=== PATIENT | female | born 1970 | race Caucasian/White ===

== ENCOUNTER → 2018-07-10 | Outpatient (CLI) | payer OTHER ==
--- NOTE | 2018-07-10 08:52 | US ---
EXAMINATION TYPE: US thyroid st tissue head/neck DATE OF EXAM: 07/10/2018 COMPARISON: NONE CLINICAL HISTORY: E04.9 Nontoxic Goiter. GLAND SIZE: Right Lobe: 8.6 x 3.9 x 4.6 cm Overall Parenchyma: heterogenous Left Lobe: 9.2 x 3.5 x 3.2 cm Overall Parenchyma: heterogeneous Isthmus Thickness: 2.8 cm NODULES RIGHT: # of nodules measured on right: 0 LEFT: # of nodules measured on left: 0 ISTHMUS: # of nodules measured in the isthmus: 0 Bilateral neck scanned, no evidence of lymphadenopathy. Gland is grossly enlarged and diffusely heterogeneous. IMPRESSION: 1. Enlarged heterogenous thyroid lobes. Discrete nodules are not identified.
== END | disposition home or self-care (01) ==
LOC: RADUSWWP 08:05
PROVIDERS: ATTEND Family Medicine
DX: E04.9 Nontoxic goiter, unspecified (principal)
CPT/HCPCS: 76536

== ENCOUNTER → 2018-12-17 | Outpatient (CLI) | payer OTHER ==
--- NOTE | 2018-12-17 13:09 | US ---
EXAMINATION TYPE: US thyroid st tissue head/neck DATE OF EXAM: 12/17/2018 COMPARISON: 07/10/2018 CLINICAL HISTORY: E04.1 Thyroid Nodule. Thyromegaly GLAND SIZE: Right Lobe: 9.4 x 4.5 x 4.6 cm (prior size of 8.6 x 3.9 x 4.6 cm) Overall Parenchyma: heterogenous Left Lobe: 7.3 x 3.5 x 4.6 cm (prior size of 9.2 x 3.5 x 3.2 cm) Overall Parenchyma: heterogeneous Isthmus Thickness: 2.3 cm NODULES RIGHT: # of nodules measured on right: 0 LEFT: # of nodules measured on left: 0 ISTHMUS: # of nodules measured in the isthmus: 0 Bilateral neck scanned, lymph nodes noted bilaterally IMPRESSION: Markedly enlarged and heterogenous thyroid gland with no discrete measurable nodule.
== END ==
LOC: RADUSWWP 12:14
PROVIDERS: ATTEND Otolaryngology
DX: E04.9 Nontoxic goiter, unspecified (principal)
CPT/HCPCS: 76536

== ENCOUNTER → 2019-03-08 | Outpatient (CLI) | payer OTHER ==
[2019-03-08 19:20] LABS: T4, Free (Free Thyroxine) 1.4 ng/dL (0.80-1.80)
== END | disposition home or self-care (01) ==
LOC: LABWHC1 12:28
PROVIDERS: ATTEND Internal Medicine Endocrinology, Diabetes & Metabolism
DX: E04.2 Nontoxic multinodular goiter (principal)
CPT/HCPCS: 36415; 84439; 84443

== ENCOUNTER → 2019-04-29 | Outpatient (CLI) | payer OTHER | END | disposition home or self-care (01) | LOC: LABWHC1 13:12 | PROVIDERS: ATTEND Internal Medicine Endocrinology, Diabetes & Metabolism | DX: E03.8 Other specified hypothyroidism (principal) | CPT/HCPCS: 36415; 84443 ==

== ENCOUNTER → 2019-05-08 | Outpatient (CLI) | payer OTHER ==
--- NOTE | 2019-05-08 11:36 | CT ---
EXAMINATION TYPE: CT soft tissue neck w con DATE OF EXAM: 05/08/2019 COMPARISON: Thyroid ultrasound 01/04/2019 HISTORY: Enlarged thyroid x [address] DLP: 596 mGycm CONTRAST: CT scan of the neck is performed with IV Contrast, patient injected with 100 mL of Isovue M300. Contrast enhanced CT of the neck was performed from the skull base through the lung apices. AIRWAY: The supraglottic, glottic, and subglottic portions of the airway appear patent and free of mass. SALIVARY GLANDS: Submandibular glands are free of mass lesion. Noted adjacent to the deep lobe of the right parotid gland is a 1.7 x 2.1 cm lobulated solid mass which likely arises outside the confines of the parotid gland and may reflect adenopathy in this region. Gland is free of nodule or mass. THYROID GLAND: There is marked enlargement of the thyroid gland with craniocaudal measurement estimat ed at 13.5 cm on the right and approximately 10.6 cm on the left. Right-sided thyroid lobe extends cr anially within the retropharyngeal space up to the C2 level and imparts mass effect upon the orophary nx. There is encasement of the trachea without obstructive change. Underlying nodules suspected with solid nodule identified on the left measuring 2.4 cm. Is also mild substernal extension. LYMPH NODES: Probable enlarged lymph node adjacent to the right parotid gland. LUNG APICES: No nodule or mass is seen. OTHER: Vascular structures are patent. No significant degenerative change of the cervical spine. N o abscess seen. IMPRESSION: 1 Thyroid enlargement as noted above. 2. Lobulated soft tissue mass adjacent to the deep lobe of the right parotid gland may reflect adjace nt adenopathy. Lesion of parotid origin however is difficult to exclude entirely.
== END | disposition home or self-care (01) ==
LOC: RADCTMAIN 10:32
PROVIDERS: ATTEND Internal Medicine Endocrinology, Diabetes & Metabolism
DX: E04.9 Nontoxic goiter, unspecified (principal); K11.8 Other diseases of salivary glands
CPT/HCPCS: 70491; Q9967

== ENCOUNTER 2019-06-17 09:21 | Day surgery (SDC) | payer OTHER ==
[2019-06-17] MEDS ORDERED: ALPRAZolam 0.5 MG TAB PO ONE (09:33)
[2019-06-17 09:40] VITALS: TEMP 98.3
[2019-06-17 10:46] VITALS: RESP 14
[2019-06-17 11:02] VITALS: BP 125/78; PULSE 85
--- NOTE | 2019-06-17 11:50 | US ---
ULTRASOUND GUIDED CORE BIOPSY RIGHT PAROTID MASS: CLINICAL HISTORY: Right parotid mass FINDINGS: The procedure was explained to the patient. The risks, complications, benefits and alternatives were discussed and any questions were answered. Informed consent was obtained. Patient was placed supine on the ultrasound table and prepped and draped in the usual sterile fashion. Utilizing a 18-gauge core biopsy needle 3 passes were made into the requested right parotid mass. Patient was stable throughout the procedure. Pathology is pending. All elements of maximal barrier and sterile technique were utilized. IMPRESSION: 1. Successful ultrasound guided core biopsy right parotid mass. MTDD
== END 2019-06-17 11:00 | disposition home or self-care (01) ==
LOC: RADPROMAIN 09:21
PROVIDERS: ATTEND Otolaryngology Plastic Surgery within the Head & Neck
DX: D49.0 Neoplasm of unspecified behavior of digestive system (principal); R22.1 Localized swelling, mass and lump, neck
CPT/HCPCS: 20206; 21550; 76942; 88305

== ENCOUNTER → 2019-06-25 | Outpatient (CLI) | payer OTHER ==
--- NOTE | 2019-06-26 14:48 | ECHOF ---
Referral Reason:I51.7 Cardiomegaly MEASUREMENTS -------- HEIGHT: 170.2 cm WEIGHT: 91.6 kg BP: RVIDd: 3.1 cm (< 3.3) IVSd: 1.1 cm (0.6 - 1.1) LVIDd: 4.1 cm (3.9 - 5.3) LVPWd: 1.3 cm (0.6 - 1.1) IVSs: 1.9 cm LVIDs: 2.1 cm LVPWs: 1.6 cm LAESV Index (A-L): 22.38 ml/m Ao Diam: 2.8 cm (2.0 - 3.7) AV Cusp: 2.3 cm (1.5 - 2.6) LA Diam: 2.8 cm (2.7 - 3.8) MV EXCURSION: 19.089 mm (> 18.000) MV EF SLOPE: 247 mm/s (70 - 150) EPSS: 0.6 cm MV E Bandar: 1.20 m/s MV DecT: 200 ms MV A Bandar: 0.77 m/s MV E/A Ratio: 1.57 RAP: 5.00 mmHg RVSP: 12.16 mmHg TAPSE: 24.30 mm FINDINGS -------- Sinus rhythm. This was a technically good study. The left ventricular size is normal. There is borderline concentric left ventricular hypertrophy. Overall left ventricular systolic function is normal with, an EF between 55 - 60 %. The diastolic filling pattern is normal for the age of the patient 11.48. The right ventricle is normal in size. The right ventricular systolic function is normal. The left atrial size is normal. Normal LA size by volume 22+/-6 ml/m2. The right atrial size is normal. Interatrial and interventricular septum intact. The aortic valve is trileaflet and appears structurally normal. The mitral valve is normal. The mitral valve leaflets are mildly thickened. There is trace mitral regurgitation. The tricuspid valve appears structurally normal. Trace tricuspid regurgitation present. Right tonio tricular systolic pressure is normal at < 35 mmHg. There is no pulmonic regurgitation present. The aortic root size is normal. Normal inferior vena cava with normal inspiratory collapse consistent with estimated right atrial pre ssure of 5 mmHg. There is no pericardial effusion. CONCLUSIONS -------- 1. Sinus rhythm. 2. This was a technically good study. 3. The left ventricular size is normal. 4. There is borderline concentric left ventricular hypertrophy. 5. Overall left ventricular systolic function is normal with, an EF between 55 - 60 %. 6. The diastolic filling pattern is normal for the age of the patient 11.48 7. The right ventricle is normal in size. 8. The right ventricular systolic function is normal. 9. The left atrial size is normal. 10. Normal LA size by volume 22+/-6 ml/m2. 11. The right atrial size is normal. 12. Interatrial and interventricular septum intact. 13. The aortic valve is trileaflet and appears structurally normal. 14. The mitral valve is normal. 15. The mitral valve leaflets are mildly thickened. 16. There is trace mitral regurgitation. 17. The tricuspid valve appears structurally normal. 18. Trace tricuspid regurgitation present. 19. Right ventricular systolic pressure is normal at < 35 mmHg. 20. There is no pulmonic regurgitation present. 21. The aortic root size is normal. 22. Normal inferior vena cava with normal inspiratory collapse consistent with estimated right atrial pressure of 5 mmHg. 23. There is no pericardial effusion. 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
== END | disposition home or self-care (01) ==
LOC: RADECHMAIN 13:06
PROVIDERS: ATTEND Family Medicine
DX: I05.9 Rheumatic mitral valve disease, unspecified (principal)
CPT/HCPCS: 93306

== ENCOUNTER → 2019-07-12 | Outpatient (CLI) | payer OTHER ==
[2019-07-12 11:33] LABS: Calcium 8.6 mg/dL (8.4-10.2); Magnesium 1.8 mg/dL (1.6-2.3); Phosphorus 4.9 mg/dL (2.5-4.5)
== END | disposition home or self-care (01) ==
LOC: LABWHC1 10:09
PROVIDERS: ATTEND Otolaryngology Plastic Surgery within the Head & Neck
DX: E83.51 Hypocalcemia (principal)
CPT/HCPCS: 36415; 82310; 83735; 84100

== ENCOUNTER → 2020-01-27 | Outpatient (CLI) | payer OTHER ==
[2020-01-27 20:13] LABS: African American GFR (CKD) 117.1 (60.0-200.0); Albumin 4.4 g/dL (3.80-4.90); Anion Gap 8.6 mmol/L (4.00-12.00); BUN/Creat Ratio 15.71 Ratio (12.00-20.00); Calcium 8.7 mg/dL (8.7-10.3); Carbon Dioxide 26.4 mmol/L (21.6-31.8); Globulin 2.2 g/dL (1.6-3.3); Potassium 4.4 mmol/L (3.5-5.5); Total Bilirubin 0.2 mg/dL (0.3-1.2); Total Protein 6.6 g/dL (6.2-8.2)
[2020-01-27 20:21] LABS: T4, Free (Free Thyroxine) 1.3 ng/dL (0.80-1.80)
== END | disposition home or self-care (01) ==
LOC: LABWHC1 13:47
PROVIDERS: ATTEND Internal Medicine Endocrinology, Diabetes & Metabolism
DX: E03.8 Other specified hypothyroidism (principal); E04.2 Nontoxic multinodular goiter
CPT/HCPCS: 36415; 80053; 84439; 84443; 84481

== ENCOUNTER → 2020-03-23 | Outpatient (CLI) | payer OTHER | END | disposition home or self-care (01) | LOC: LABWHC1 15:06 | PROVIDERS: ATTEND Internal Medicine Endocrinology, Diabetes & Metabolism | DX: E03.8 Other specified hypothyroidism (principal) | CPT/HCPCS: 36415; 84443 ==

== ENCOUNTER → 2020-04-18 | Outpatient (CLI) | payer OTHER ==
--- NOTE | 2020-04-18 12:39 | MR ---
EXAMINATION TYPE: MR neck wo/w con DATE OF EXAM: 04/18/2020 COMPARISON: CT neck May 08, 2019 HISTORY: Rt side parotid swelling/lump, Hx of thyroid removal. Symptoms of headaches with pain or wea kness in fingers per patient. CONTRAST: Standard multiplanar, multisequence MRI departmental protocol utilizing 11 mL intravenous Gadavist ga dolinium contrast. FINDINGS: Interval removal of the heterogeneous markedly enlarged thyroid from prior CT noted. Suspec t persistent slightly enlarged left supraclavicular lymph node measuring 1.5 x 1.1 cm axial image 7 s eries 501. There is partial visualization of thin-walled cyst or cystic lesion towards the left shoulder axial i mage 12, possible bursal in etiology. Submandibular glands are symmetric and felt within normal limits. In the posterior inferior aspect of the right parotid gland there is persistent well-defined slightly lobulated mass measuring 2.0 cm transversely by 1.8 cm AP diameter by 3.2 cm craniocaudal diameter, not significantly changed in size from CT where it is noted hyperdense. Lesion is low T1 and signal a nd heterogeneous slightly increased T2 signal with rim hypointense T2 signal. There appears to be britta e heterogeneous enhancement of the lesion on the T1 coronal fat saturated images without significant enhancement on the nonfat saturated images. There is definitive areas of cystic change in the lesion on the T2 and STIR weighted images. Visualized paranasal sinuses are clear. Globes are intact bilaterally. Visualized brain parenchyma is unremarkable. No definitive new greater than 1 cm neck adenopathy is seen. Parapharyngeal fat spaces are maintained. IMPRESSION: Stable posterior inferior right parotid solid and cystic mass suspected neoplasm favored benign in etiology which was sampled June 17, 2019. Correlate clinically and with sampling results .
== END | disposition home or self-care (01) ==
LOC: RADMRIMAIN 11:04
PROVIDERS: ATTEND Otolaryngology Plastic Surgery within the Head & Neck
DX: R22.1 Localized swelling, mass and lump, neck (principal)
CPT/HCPCS: 70543; A9585

== ENCOUNTER → 2020-06-02 | Outpatient (CLI) | payer OTHER | END | disposition home or self-care (01) | LOC: LABWHC1 14:20 | PROVIDERS: ATTEND Internal Medicine Endocrinology, Diabetes & Metabolism | DX: E03.8 Other specified hypothyroidism (principal) | CPT/HCPCS: 36415; 84443 ==

== ENCOUNTER → 2021-04-11 | Outpatient (CLI) | payer OTHER ==
--- NOTE | 2021-04-12 13:59 | EST ---
EXERCISE STRESS DATE OF SERVICE: 04/11/2021 AGE: 50 SEX: F HT: 5'7" WT: 515 lbs. PROTOCOL: Bayron STAGE: 2 DURATION OF EXERCISE: 4:14 HEART RATE REST: 91 BLOOD PRESSURE REST: 110/68 MAXIMUM HEART RATE ACHIEVED: 146 MAXIMUM BLOOD PRESSURE: 174/68 85% MPHR: 144 100% MPHR: 169 METS: 6.0 INDICATIONS: Chest pain CLINICAL INFORMATION: Baseline EKG revealed normal sinus rhythm without significant ST-T changes. Patient walked on standard Bayron protocol for 4 minutes, 14 seconds, achieved a maximal heart rate of 146 beats per minute, which is 85% of predicted maximum. She developed fatigue and shortness of breath but did not have any angina or arrhythmia. EKG did not reveal any ST-segment changes to indicate ischemia. This is a negative stress test by EKG criteria with limited exercise capacity. The nuclear scan results, which are more pertinent, will be reported by the radiologist. KATYA / RAFY: [id number] /
== END | disposition home or self-care (01) ==
LOC: RADNMMAIN 08:34
PROVIDERS: ATTEND Family Medicine
DX: R07.9 Chest pain, unspecified (principal)
CPT/HCPCS: 93017

== ENCOUNTER → 2021-06-13 | Outpatient (CLI) | payer OTHER ==
[2021-06-13 14:55] LABS: Appearance,Urine Clear (Clear); Bilirubin,Urine Negative (Negative); Blood,Urine Negative (Negative); Color,Urine Light Yellow; Glucose,Urine (UA) Negative (Negative); Ketones,Urine Negative (Negative); Leukocyte Esterase,Urine Small (Negative); Mucus,Urine Rare /hpf; Nitrite,Urine Negative (Negative); PH, Urine 6.5 (5.0-8.0); Protein,Urine Negative (Negative); RBC,Urine 1 /hpf (0-5); Specific Gravity,Urine 1.005 (1.001-1.035); Squamous Epithelial Cell,Urine 2 /hpf (0-4); Urobilinogen,Urine <2.0 mg/dL (<2.0); WBC,Urine 4 /hpf (0-5)
[2021-06-13 20:18] LABS: Basophils # (A) 0.07 X 10*3/uL (0.00-0.10); Basophils % (A) 0.7 %; Eosinophils # (A) 0.38 X 10*3/uL (0.04-0.35); Eosinophils % (A) 3.6 %; HCT 41.7 % (37.2-46.3); HGB 13.4 g/dL (12.0-15.0); Lymphocytes # (A) 1.82 X 10*3/uL (0.90-5.00); Lymphocytes % (A) 17.4 %; MCHC 32.1 g/dL (32.0-37.0); MCV 90.3 fL (80.0-97.0); Mean Platelet Volume 11.4 fL (9.5-12.2); Monocytes # (A) 0.57 X 10*3/uL (0.20-1.00); Monocytes % (A) 5.4 %; Neutrophils % (A) 72.5 %; Platelet Count 415 X 10*3/uL (140-440); RBC 4.62 X 10*6/uL (4.10-5.20); RDW 12.8 % (11.5-14.5); WBC 10.48 X 10*3/uL (4.50-10.00)
[2021-06-14 01:03] LABS: African American GFR (CKD) 119.9 (60.0-200.0); Albumin 4.3 g/dL (3.8-4.9); Albumin/Globulin Ratio 1.67 (1.60-3.17); Anion Gap 7.4 mmol/L (4.00-12.00); BUN/Creat Ratio 10.69 Ratio (12.00-20.00); Blood Urea Nitrogen 6.8 mg/dL (9.0-27.0); Carbon Dioxide 29.3 mmol/L (21.6-31.8); Globulin 2.6 g/dL (1.6-3.3); Non-African American GFR(CKD) 103.5 (60.0-200.0); Potassium 4.1 mmol/L (3.5-5.5); T4, Free (Free Thyroxine) 2.1 ng/dL (0.800-1.800); Total Bilirubin 0.2 mg/dL (0.30-1.20); Total Protein 6.9 g/dL (6.2-8.2)
[2021-06-14 03:10] LABS: EBV-EA (IgG) <0.2 AI; EBV-EBNA(IgG) >8.0 AI; EBV-VCA (IgG) >8.0 AI; EBV-VCA (IgM) <0.2 AI
== END | disposition home or self-care (01) ==
LOC: LABWHC1 06-12 14:23
PROVIDERS: ATTEND Nurse Practitioner Family
DX: R53.83 Other fatigue (principal)
CPT/HCPCS: 36415; 80053; 81001; 82550; 82553; 84439; 84443; 85025; 86644; 86645; 86663; 86664; 86665; 87502

== ENCOUNTER 2021-11-08 11:08 | Observation (INO) | payer OTHER ==
[2021-11-08 11:13] VITALS: TEMP 98.3
[2021-11-08 11:41] LABS: Glucose,Whole Blood 227 mg/dL (75-99)
[2021-11-08] MEDS ORDERED: NITROGLYCERIN SL TABS 0.4 MG TAB SUBLINGUAL STA (12:09)
[2021-11-08] MEDS ORDERED: ASPIRIN 81 MG PO STA (12:09)
[2021-11-08 12:34] LABS: ALT 18 U/L (4-34); African American GFR (CKD) >90 (>60 ml/min/1.73 sqM); Albumin 4.1 g/dL (3.5-5.0); Anion Gap 11 mmol/L; Blood Urea Nitrogen 16 mg/dL (7-17); Calcium 8.6 mg/dL (8.4-10.2); Carbon Dioxide 22 mmol/L (22-30); Chloride 105 mmol/L (98-107); Glucose 197 mg/dL (74-99); Lipase 101 U/L (23-300); Non-African American GFR(CKD) >90 (>60 ml/min/1.73 sqM); Sodium 138 mmol/L (137-145); Total Bilirubin 0.6 mg/dL (0.2-1.3); Total Protein 7.6 g/dL (6.3-8.2)
[2021-11-08 12:36] LABS: Basophils # (A) 0.1 k/uL (0-0.2); Basophils % (A) 0 %; Eosinophils # (A) 0.2 k/uL (0-0.7); Eosinophils % (A) 2 %; HCT 41.8 % (34.0-46.0); HGB 14.5 gm/dL (11.4-16.0); Lymphocytes # (A) 1.1 k/uL (1.0-4.8); Lymphocytes % (A) 10 %; MCH 31.2 pg (25.0-35.0); MCHC 34.6 g/dL (31.0-37.0); MCV 90.2 fL (80.0-100.0); Mean Platelet Volume 8.5; Monocytes # (A) 0.4 k/uL (0-1.0); Monocytes % (A) 4 %; Neutrophils % (A) 83 %; Platelet Count 419 k/uL (150-450); RBC 4.64 m/uL (3.80-5.40); RDW 13.4 % (11.5-15.5); WBC 10.7 k/uL (3.8-10.6)
[2021-11-08 12:37] LABS: INR 0.9 (<1.2); Partial Thromboplastin Time 24.2 sec (22.0-30.0); Prothrombin Time 9.6 sec (9.0-12.0)
[2021-11-08 12:47] LABS: AST 23 U/L (14-36); Alkaline Phosphatase 85 U/L (38-126); Magnesium 1.9 mg/dL (1.6-2.3); Potassium 4.1 mmol/L (3.5-5.1)
--- NOTE | 2021-11-08 12:58 | XR ---
EXAMINATION TYPE: XR chest 2V DATE OF EXAM: 11/08/2021 COMPARISON: 05/26/2010 TECHNIQUE: PA and lateral views submitted. HISTORY: Chest pain FINDINGS: The lungs are clear and there is no pneumothorax, pleural effusion, or focal pneumonia. Hypertrophi c and degenerative changes spine. Biapical pleural thickening. Arthropathy of the shoulders. IMPRESSION: 1. No acute process.
[2021-11-08 13:07] VITALS: BP 142/87; PULSE 89; RESP 18
[2021-11-08] MEDS ORDERED: NALOXONE 0.4 MG/ML 1 ML VIAL IV PRN (15:15)
--- NOTE | 2021-11-08 15:21 | ED ---
Chest Pain HPI - General Chief Complaint: Chest Pain Stated Complaint: Chest pain Source: patient Mode of arrival: wheelchair Limitations: no limitations - History of Present Illness Initial Comments: 51-year-old female past medical history of diabetes, thyroid disorder presents emergency room with reported chest pain. Started around 7 AM. Described as a pressure sensation in the substernal region without radiation. Did not take any medications at home for her symptoms. No previous cardiac history. No associated nausea, vomiting, diaphoresis or shortness of breath. No history of DVT or PE. Did have cardiac clearance before a surgery in 2018. Admits to some diarrhea recently. No ripping or tearing sensation to her back. No lower extremity edema. No other alleviating, precipitating or modifying factors - Related Data Home Medications Medication Instructions Recorded Confirmed Aspirin EC [Ecotrin Low Dose] 81 mg PO DAILY 11/08/21 11/08/21 Levothyroxine Sodium [Synthroid] 175 mcg PO DAILY 11/08/21 11/08/21 Allergies Allergy/AdvReac Type Severity Reaction Status Date / Time Penicillins Allergy Rash/Hives Verified 11/08/21 12:27 all over Review of Systems ROS Statement: Those systems with pertinent positive or pertinent negative responses have been documented in the HPI. ROS Other: All systems not noted in ROS Statement are negative. EKG Findings - EKG Comments: EKG Findings:: EKG demonstrates sinus rhythm with a rate of 95. IA interval 154. QRS 108. QTC of 419. No acute ST segment elevations or depressions Past Medical History Past Medical History: Diabetes Mellitus, Thyroid Disorder History of Any Multi-Drug Resistant Organisms: None Reported Past Surgical History: Orthopedic Surgery Additional Past Surgical History / Comment(s): left wrist rugery post work accident, sliced arm open 18 inches with a jukebox operator, plan for total thyroidectomy Jul 08 Past Anesthesia/Blood Transfusion Reactions: No Reported Reaction Additional Past Anesthesia/Blood Transfusion Reaction / Comment(s): no previous blood transfusion Past Psychological History: Depression Smoking Status: Current every day smoker Past Alcohol Use History: None Reported Past Drug Use History: None Reported - Past Family History Mother Additional Family Medical History / Comment(s): multiple sclerosis Father Additional Family Medical History / Comment(s): ETOH General Exam Limitations: no limitations Course Vital Signs 11/08/21 11/08/21 11:11 13:06 Temperature 98.3 F Pulse Rate 95 89 Respiratory 20 18 Rate Blood Pressure 147/92 142/87 O2 Sat by Pulse 100 98 Oximetry Chest Pain MDM - MDM Upon arrival patient was placed into room 1. A thorough history and physical exam was performed. Patient given aspirin and nitro. Patient does have improvement in her pain. Laboratory studies were conducted which demonstrated a negative troponin. Chest x-ray negative for any acute process. Recommend admission for cardiology evaluation for to the patient did agree to. Nitropaste placed to the chest and patient's admitted to [facility]. Spoke with Dr. Barrios Disposition Clinical Impression: Chest pain Disposition: ADMITTED IP TO THIS HOSP Condition: Stable Is patient prescribed a controlled substance at d/c from ED?: No Decision to Admit Reason: Admit from EC Decision Date: 11/08/21 Decision Time: 15:21
[2021-11-08] MEDS ORDERED: NITROGLYCERIN OINT 1 INCH/GM PACKET TOPICAL STA (16:37)
--- NOTE | 2021-11-08 17:12 | P.HPIM ---
History of Present Illness H&P Date: 11/08/21 History of Presenting Illness: Patient is a Review of systems: Pertinent positives and negatives as discussed in HPI, a complete review of systems was performed and all other systems are negative. Physical exam: Vital signs reviewed and stable. General: Nontoxic, no distress and appears stated age. Derm: Skin warm and dry, normal coloration for ethnicity. Head: Atraumatic, normocephalic and symmetric. Eyes: EOMs intact, no lid lag, and anicteric sclera Mouth: no lip lesions, mucus membranes moist Cardiovascular: regular rate and rhythm with normal S1S2, no murmur, positive posterior tibial pulses bilaterally, and cap refill < 2 seconds. Lungs: Respirations even, regular, and unlabored on room air. Lungs CTA bilaterally, no rhonchi, no rales, no wheezing, and no accessory muscle usage. Abdominal: soft, nontender to palpation, no guarding, no appreciable organomegaly Ext: ROM intact. No gross muscle atrophy, no edema, no contractures Neuro: Speech clear, face symmetrical and CN II-XII grossly intact with no noted focal neuro deficits Psych: Alert and oriented to person, place, time, and situation. Appropriate and pleasant affect. Assessment and Plan of Care: The patient is admitted with an anticipated greater than 2 midnight stay for evaluation of []. Surrogate decision-maker: [] CODE STATUS:[] DVT prophylaxis: [] Discussed with: [] Anticipated discharge date: [] Anticipated discharge place: [] A total of [] minutes was spent on the care of this complex patient more than 50% of the time was spent in counseling and care coordination. Past Medical History Past Medical History: Diabetes Mellitus, Thyroid Disorder History of Any Multi-Drug Resistant Organisms: None Reported Past Surgical History: Orthopedic Surgery Additional Past Surgical History / Comment(s): left wrist rugery post work accident, sliced arm open 18 inches with a box sealing machine catcher, plan for total thyroidectomy Jul 08 Past Anesthesia/Blood Transfusion Reactions: No Reported Reaction Additional Past Anesthesia/Blood Transfusion Reaction / Comment(s): no previous blood transfusion Past Psychological History: Depression Smoking Status: Current every day smoker Past Alcohol Use History: None Reported Past Drug Use History: None Reported - Past Family History Mother Additional Family Medical History / Comment(s): multiple sclerosis Father Additional Family Medical History / Comment(s): ETOH Medications and Allergies Home Medications Medication Instructions Recorded Confirmed Type Aspirin EC [Ecotrin Low Dose] 81 mg PO DAILY 11/08/21 11/08/21 History Levothyroxine Sodium [Synthroid] 175 mcg PO DAILY 11/08/21 11/08/21 History Allergies Allergy/AdvReac Type Severity Reaction Status Date / Time Penicillins Allergy Rash/Hives Verified 11/08/21 12:27 all over Physical Exam Vitals: Vital Signs Temp Pulse Resp BP Pulse Ox 11/08/21 16:37 98.3 F 89 18 142/87 98 11/08/21 13:06 89 18 142/87 98 11/08/21 11:11 98.3 F 95 20 147/92 100 Intake and Output 11/08/21 11/08/21 11/08/21 06:59 14:59 22:59 Other: Weight 99.79 kg Results CBC & Chem 7: 11/08/21 12:09 11/08/21 12:09 Labs: Abnormal Lab Results - Last 24 Hours (Table) 11/08/21 11/08/21 11/08/21 Range/Units 11:39 12:09 12:09 WBC 10.7 H (3.8-10.6) k/uL Neutrophils # 9.0 H (1.3-7.7) k/uL Glucose 197 H (74-99) mg/dL POC Glucose (mg/dL) 227 H (75-99) mg/dL
--- NOTE | 2021-11-08 17:40 | P.HPIM ---
History of Present Illness H&P Date: 11/08/21 Received notification of patient's admission at 4:10 PM. Upon going to bedside to see patient at 5:12 PM, I was notified that patient had left the emergency department AMA. Patient was not evaluated by inpatient provider as she left prior to physical examination within one hour of admission. Past Medical History Past Medical History: Diabetes Mellitus, Thyroid Disorder History of Any Multi-Drug Resistant Organisms: None Reported Past Surgical History: Orthopedic Surgery Additional Past Surgical History / Comment(s): left wrist rugery post work accident, sliced arm open 18 inches with a box maker, plan for total thyroidectomy Jul 08 Past Anesthesia/Blood Transfusion Reactions: No Reported Reaction Additional Past Anesthesia/Blood Transfusion Reaction / Comment(s): no previous blood transfusion Past Psychological History: Depression Smoking Status: Current every day smoker Past Alcohol Use History: None Reported Past Drug Use History: None Reported - Past Family History Mother Additional Family Medical History / Comment(s): multiple sclerosis Father Additional Family Medical History / Comment(s): ETOH Medications and Allergies Home Medications Medication Instructions Recorded Confirmed Type Aspirin EC [Ecotrin Low Dose] 81 mg PO DAILY 11/08/21 11/08/21 History Levothyroxine Sodium [Synthroid] 175 mcg PO DAILY 11/08/21 11/08/21 History Allergies Allergy/AdvReac Type Severity Reaction Status Date / Time Penicillins Allergy Rash/Hives Verified 11/08/21 12:27 all over Physical Exam Vitals: Vital Signs Temp Pulse Resp BP Pulse Ox 11/08/21 16:37 98.3 F 89 18 142/87 98 11/08/21 13:06 89 18 142/87 98 11/08/21 11:11 98.3 F 95 20 147/92 100 Intake and Output 11/08/21 11/08/21 11/08/21 06:59 14:59 22:59 Other: Weight 99.79 kg Results CBC & Chem 7: 11/08/21 12:09 11/08/21 12:09 Labs: Abnormal Lab Results - Last 24 Hours (Table) 11/08/21 11/08/21 11/08/21 Range/Units 11:39 12:09 12:09 WBC 10.7 H (3.8-10.6) k/uL Neutrophils # 9.0 H (1.3-7.7) k/uL Glucose 197 H (74-99) mg/dL POC Glucose (mg/dL) 227 H (75-99) mg/dL
[2021-11-09] MEDS ORDERED: LEVOTHYROXINE 88 MCG TAB PO SCH (06:30)
[2021-11-09] MEDS ORDERED: ASPIRIN 81 MG PO SCH (09:00)
== END 2021-11-08 18:02 | disposition left against medical advice (07) ==
LOC: EC 11:08 → 6NMEDSUR 15:15
PROVIDERS: ADMIT Internal Medicine; ATTEND Internal Medicine
DX: R07.89 Other chest pain (principal); Z53.29 Procedure and treatment not carried out because of patient's decision for other reasons; R07.2 Precordial pain; R19.7 Diarrhea, unspecified; E11.9 Type 2 diabetes mellitus without complications; E07.9 Disorder of thyroid, unspecified; F32.A Depression, unspecified; F17.200 Nicotine dependence, unspecified, uncomplicated; Z79.82 Long term (current) use of aspirin; Z79.890 Hormone replacement therapy; Z88.0 Allergy status to penicillin; Z82.0 Family history of epilepsy and other diseases of the nervous system
CPT/HCPCS: 99285; 36415; 93005; 80053; 83690; 83735; 84484; 85025; 85610; 85730; 71046; G0378

== ENCOUNTER 2024-07-04 02:55 | Inpatient (IN) | payer OTHER ==
--- NOTE | 2024-07-04 02:58 | ED ---
Chest Pain HPI - General Stated Complaint: CP Time Seen by Provider: 07/04/24 02:57 Source: RN notes reviewed, old records reviewed Mode of arrival: EMS Limitations: no limitations - History of Present Illness Initial Comments: This is a 53 female presenting with fever cough congestion chest pain right- sided chest pain and concern for heart here in the emergency department. Tim nayak does have increased cough no travel history no sick contacts no other complaint MD Complaint: chest pain, other (Cough and fever) -: days(s) Onset: during rest Pain Location: right chest Pain Radiation: back Severity: moderate Severity scale (1-10): 6 Quality: tightness, aching Consistency: constant Improves With: nothing Worsens With: nothing Anginal Symptoms: diaphoresis, dyspnea, sense of impending doom Other Symptoms: palpitations Treatments Prior to Arrival: none - Related Data Home Medications Medication Instructions Recorded Confirmed Aspirin EC [Ecotrin Low Dose] 81 mg PO DAILY@1200 11/08/21 07/04/24 Acetaminophen [Tylenol] 975 mg PO Q6H PRN 07/04/24 07/04/24 Ergocalciferol (Vitamin D2) 1,250 mcg PO QMONTHLY 07/04/24 07/04/24 [Drisdol (50,000 Iu)] Gabapentin [Neurontin] 600 mg PO TID@1000,1600,2200 07/04/24 07/04/24 Insulin Glargine,Hum.rec.anlog 35 units SQ DAILY@19307/04/24 07/04/24 [Lantus Solostar Pen] Levothyroxine Sodium [Synthroid] 200 mcg PO DAILY@0700 07/04/24 07/04/24 Losartan [Cozaar] 50 mg PO DAILY@1930 07/04/24 07/04/24 Pioglitazone [Actos] 30 mg PO DAILY@1200 07/04/24 07/04/24 Rosuvastatin [Crestor] 10 mg PO DAILY@1200 07/04/24 07/04/24 buPROPion HCL [buPROPion HCL XL] 300 mg PO DAILY@0800 07/04/24 07/04/24 Previous Rx's Medication Instructions Recorded Cefdinir [Omnicef] 300 mg PO BID 5 Days #10 cap 07/06/24 Allergies Allergy/AdvReac Type Severity Reaction Status Date / Time Penicillins Allergy Anaphylaxis Verified 07/04/24 09:42 Review of Systems ROS Statement: Those systems with pertinent positive or pertinent negative responses have been documented in the HPI. ROS Other: All systems not noted in ROS Statement are negative. EKG Findings - EKG Comments: EKG Findings:: EG sinus tachycardia 109 HI 137 QRS 100 QTc 393 - EKG Results: EKG: interpreted by NATHANAEL Past Medical History Past Medical History: Diabetes Mellitus, Thyroid Disorder History of Any Multi-Drug Resistant Organisms: None Reported Past Surgical History: Orthopedic Surgery Additional Past Surgical History / Comment(s): left wrist rugery post work accident, sliced arm open 18 inches with a ordering box operator, plan for total thyroidectomy Jul 08 Past Anesthesia/Blood Transfusion Reactions: No Reported Reaction Additional Past Anesthesia/Blood Transfusion Reaction / Comment(s): no previous blood transfusion Past Psychological History: Depression Smoking Status: Current every day smoker Past Alcohol Use History: None Reported Past Drug Use History: None Reported - Past Family History Mother Additional Family Medical History / Comment(s): multiple sclerosis Father Additional Family Medical History / Comment(s): ETOH General Exam General appearance: alert, anxious, in distress Head exam: Present: atraumatic, normocephalic, normal inspection Eye exam: Present: normal appearance, PERRL, EOMI. Absent: scleral icterus, conjunctival injection, periorbital swelling ENT exam: Present: normal exam, mucous membranes moist Neck exam: Present: normal inspection. Absent: tenderness, meningismus, lymphadenopathy Respiratory exam: Present: respiratory distress, wheezes, accessory muscle use, decreased breath sounds. Absent: rales, rhonchi, stridor Cardiovascular Exam: Present: normal rhythm, tachycardia, normal heart sounds. Absent: systolic murmur, diastolic murmur, rubs, gallop, clicks GI/Abdominal exam: Present: soft, normal bowel sounds. Absent: distended, tenderness, guarding, rebound, rigid Extremities exam: Present: normal inspection, full ROM, normal capillary refill. Absent: tenderness, pedal edema, joint swelling, calf tenderness Back exam: Present: normal inspection Neurological exam: Present: alert, oriented X3, CN II-XII intact Psychiatric exam: Present: normal affect, normal mood Skin exam: Present: warm, dry, intact, normal color. Absent: rash Course Vital Signs 07/04/24 07/04/24 07/04/24 03:05 04:34 05:09 Temperature 98.3 F 101.7 F H Pulse Rate 107 H 103 H 98 Respiratory 18 20 Rate Blood Pressure 124/65 126/74 O2 Sat by Pulse 99 96 Oximetry 07/04/24 07/04/24 07/04/24 05:26 06:04 07:51 Temperature 99 F Pulse Rate 107 H 103 H 97 Respiratory 20 18 Rate Blood Pressure 103/56 95/58 O2 Sat by Pulse 95 96 Oximetry 07/04/24 07/04/24 12:34 13:54 Temperature 100 F H 101 F H Pulse Rate 105 H 106 H Respiratory 18 20 Rate Blood Pressure 115/83 103/76 O2 Sat by Pulse 96 96 Oximetry - Reevaluation(s) Reevaluation #1: 07/04/24 03:06 Medical records reviewed Reevaluation #2: 07/04/24 04:14 Patient showing some improvement here in the ER with symptom management and breathing treatments Reevaluation #3: 07/04/24 04:14 Informed of results and questions answered Reevaluation #4: Was pt. sent in by a medical professional or institution (, PA, HAND CANDLE MOLDER, urgent care, hospital, or jail...) When possible be specific @ -no Did you speak to anyone other than the patient for history (EMS, parent, family, police, friend...)? What history was obtained from this source @ -no Did you review nursing and triage notes (agree or disagree)? Why? @ -agree Are old charts reviewed (outside hosp., previous admission, EMS record, old EKG, old radiological studies, urgent care reports/EKG's, jail records)? Report findings @ -yes Differential Diagnosis (chest pain, altered mental status, abdominal pain women, abdominal pain men, vaginal bleeding, weakness, fever, dyspnea, syncope, headache, dizziness, GI bleed, back pain, seizure, CVA, palpatations, mental health, musculoskeletal)? @ -prior EKG interpreted by me (3pts min.). @ -yes X-rays interpreted by me (1pt min.). @ -yes positive for pneumonia CT interpreted by me (1pt min.). @ -no U/S interpreted by me (1pt. min.). @ -no What testing was considered but not performed or refused? (CT, X-rays, U/S, labs)? Why? @ -none What meds were considered but not given or refused? Why? @ -none Did you discuss the management of the patient with other professionals (professionals i.e. , PA, HAND CANDLE MOLDER, lab, RT, psych nurse, child protective services social worker, sales team member, teacher, staff electronic warfare officer, nurse outreach case manager)? Give summary @ -no Was smoking cessation discussed for >3mins.? @ -no Was critical care preformed (if so, how long)? @ -yes31 Were there social determinants of health that impacted care today? How? (Homelessness, low income, unemployed, alcoholism, drug addiction, transportation, low edu. Level, literacy, decrease access to med. care, assisted, rehab)? @ -none Was there de-escalation of care discussed even if they declined (Discuss DNR or withdrawal of care, Hospice)? DNR status @ -no What co-morbidities impacted this encounter? (DM, HTN, Smoking, COPD, CAD, Cancer, CVA, ARF, Chemo, Hep., AIDS, mental health diagnosis, sleep apnea, morbid obesity)? @ -none Was patient admitted / discharged? Hospital course, mention meds given and route, prescriptions, significant lab abnormalities, going to OR and other pertinent info. @ - 53 female who did present with chest pain having significant pneumonia here in the ER shortness of breath wheezing history of smoking with COPD strong heart history high blood pressure high cholesterol diabetes with recently quitting smoking, patient will admit for cardiac observation underlying full admission for pneumonia Admitted Undiagnosed new problem with uncertain prognosis? @ -no Drug Therapy requiring intensive monitoring for toxicity (Heparin, Nitro, Insulin, Cardizem)? @ -no Were any procedures done? @ -no Diagnosis/symptom? @ -Chest pain and pneumonia Acute, or Chronic, or Acute on Chronic? @ -Acute Uncomplicated (without systemic symptoms) or Complicated (systemic symptoms)? @ -Complicated Side effects of treatment? @ -no Exacerbation, Progression, or Severe Exacerbation? @ -exacerbation Poses a threat to life or bodily function? How? (Chest pain, [place], [place], pneumonia, PE, COPD, DKA, ARF, appy, cholecystitis, CVA, Diverticulitis, Homicidal, Suicidal, threat to staff... and all critical care pts) @ -yes with chest pain and pneumonia Reevaluation #5: Differential Chest Pain: Stable Angina, Unstable Angina, STEMI, NSTEMI Aortic Dissection, Pneumothorax, Musculoskeletal, Esophageal Spasm GERD, Cholecystitis, Pancreatitis, Zoster, this is not meant to be an all-inclusive list. - Consultations Consultation #1: Spoke with [facility] who agrees to admit this patient Chest Pain MDM - MDM 53 female who did present with chest pain having significant pneumonia here in the ER shortness of breath wheezing history of smoking with COPD strong heart history high blood pressure high cholesterol diabetes with recently quitting smoking, patient will admit for cardiac observation underlying full admission for pneumonia Critical Care Time Critical Care Time: Yes Total Critical Care Time: 31 Disposition Clinical Impression: Chest pain, Atypical chest pain, Pneumonia, COPD (chronic obstructive pulmonary disease) Disposition: ADMITTED IP TO THIS HOSP Condition: Fair Is patient prescribed a controlled substance at d/c from ED?: No Time of Disposition: 04:00
[2024-07-04] MEDS: SODIUM CHLORIDE 0.9% 1,000 ML IV STA ×2 (03:12→04:44)
[2024-07-04] MEDS: MORPHINE SULFATE 4 MG/ML SYRINGE IV STA (03:12)
[2024-07-04] MEDS: ONDANSETRON 4 MG/2 ML VIAL IVP STA (03:17)
[2024-07-04 03:42] LABS: Basophils % (A) 0 %; Eosinophils # (A) 0.1 k/uL (0-0.7); Eosinophils % (A) 0 %; HCT 33.2 % (34.0-46.0); HGB 10.8 gm/dL (11.4-16.0); Lymphocytes # (A) 0.6 k/uL (1.0-4.8); Lymphocytes % (A) 2 %; MCH 29.8 pg (25.0-35.0); MCHC 32.3 g/dL (31.0-37.0); Mean Platelet Volume 7.8; Monocytes # (A) 0.5 k/uL (0-1.0); Monocytes % (A) 2 %; Neutrophils # (A) 24.5 k/uL (1.3-7.7); Neutrophils % (A) 95 %; Platelet Count 305 k/uL (150-450); RBC 3.61 m/uL (3.80-5.40); RDW 13.4 % (11.5-15.5); WBC 25.8 k/uL (3.8-10.6)
[2024-07-04 03:56] LABS: INR 1.1 (<1.2); Partial Thromboplastin Time 29.6 sec (22.0-30.0); Prothrombin Time 12.1 sec (10.0-12.5)
[2024-07-04 03:59] LABS: ALT 56 U/L (4-34); African American GFR (CKD) >90 (>60 ml/min/1.73 sqM); Albumin 3.6 g/dL (3.5-5.0); Anion Gap 11 mmol/L; Blood Urea Nitrogen 14 mg/dL (7-17); Calcium 7.6 mg/dL (8.4-10.2); Carbon Dioxide 21 mmol/L (22-30); Chloride 101 mmol/L (98-107); Glucose 132 mg/dL (74-99); Lipase 17 U/L (23-300); Non-African American GFR(CKD) >90 (>60 ml/min/1.73 sqM); Sodium 133 mmol/L (137-145); Total Bilirubin 1.4 mg/dL (0.2-1.3)
[2024-07-04 04:07] LABS: NT-Pro-B-Type Natriuretic Pept 710 pg/mL
[2024-07-04] MEDS ORDERED: PNEUMONIA PROTOCOL UTILIZED 1 EACH MISC PO PRN (04:11)
[2024-07-04 04:32] LABS: AST 71 U/L (14-36); Alkaline Phosphatase 83 U/L (38-126); Magnesium 1.7 mg/dL (1.6-2.3); Potassium 3.8 mmol/L (3.5-5.1); Total Protein 6.7 g/dL (6.3-8.2)
[2024-07-04] MEDS: ACETAMINOPHEN IV (For NPO) 1,000 MG in EMPTY BAG 1 BAG IVPB STA (04:38)
[2024-07-04] MEDS: SODIUM CHLORIDE 0.9% 2,000 ML IV STA (04:45)
--- NOTE | 2024-07-04 05:06 | XR ---
EXAM: XR Chest, 2 Views CLINICAL HISTORY: Chest Pain TECHNIQUE: Frontal and lateral views of the chest. COMPARISON: No relevant prior studies available. FINDINGS: Lungs: Large amount of consolidation in right upper lobe. Small amount of scattered air space opacities in throughout right lung. Left lung is clear Pleural space: Unremarkable. Mediastinum: Unremarkable. Normal mediastinal contour. Bones/joints: No acute findings. IMPRESSION: Right pneumonia. Recommend follow-up to resolution to rule out potential underlying neoplastic etiologies.
[2024-07-04] MEDS: IPRATROPIUM-ALBUTEROL 3 ML NEB INHALATION STA (05:07)
[2024-07-04] MEDS: IBUPROFEN IV 800 MG in SODIUM CHLORIDE 0.9% 250 ML IV ONE (05:17)
--- NOTE | 2024-07-04 05:18 | CT ---
EXAM: CT Angiography Chest With Intravenous Contrast CLINICAL HISTORY: cp TECHNIQUE: Axial computed tomographic angiography images of the chest with intravenous contrast. CTDI is 19.2 mGy and DLP is 825 mGy-cm. This CT exam was performed using one or more of the following dose reduction techniques: automated exposure control, adjustment of the mA and/or kV according to patient size, and/or use of iterative reconstruction technique. MIP reconstructed images were created and reviewed. Coronal and sagittal reformatted images were created and reviewed. 765 images COMPARISON: No relevant prior studies available. FINDINGS: Pulmonary arteries: Unremarkable. No pulmonary embolism. Aorta: See below. Lungs: Large consolidation in the posterior right upper lobe surrounded by patchy airspace opacities with air bronchogram. Small patchy air space opacities in right lower lobe. Left lung is clear. Pleural space: Unremarkable. No significant effusion. No pneumothorax. Heart: Unremarkable. No cardiomegaly. No significant pericardial effusion. No evidence of RV dysfunction. Mediastinum: Unremarkable cardiac findings Thyroid: Thyroid gland is absent. Bones/joints: Moderate degenerative changes. Soft tissues: Unremarkable. Lymph nodes: Mildly enlarged mediastinal and bilateral hilar lymph nodes. Largest is at the level of aortic arch measuring about 2.3 cm in long axis best seen on series 401 image 54. Adrenal: 3.3 cm left adrenal nodule measuring about 27 HU, probably adenoma. Liver: Diffuse fatty infiltration. IMPRESSION: 1. Right pneumonia. 2. Reactive mediastinal and hilar lymphadenopathy. 3. No pulmonary embolism. No thoracic aortic enters or dissection. 4. 3.3 cm left adrenal nodule. Consider elective surgical consult if clinically indicated.
[2024-07-04] MEDS: SODIUM CHLORIDE 0.9% 1,000 ML IV SCH (05:21)
[2024-07-04] MEDS: AZITHROMYCIN 500 MG in SODIUM CHLORIDE 0.9% 250 ML IVPB STA (05:57)
[2024-07-04] MEDS ORDERED: DEXTROSE 50% SYRINGE 50 ML IVP PRN ×2 (10:33)
--- NOTE | 2024-07-04 11:21 | P.CRDCN ---
History of Present Illness History of present illness: HISTORY OF PRESENT ILLNESS: This is a 53-year-old female with a past medical history significant for hypertension, hyperlipidemia, diabetes, morbid obesity, thyroidectomy in 2019 due to goiter, Iron's, fibromyalgia, and carotid stenosis. Patient does not follow with a certified caregiver. We have been asked to see the patient in consultation for chest pain. Patient examined at the bedside. Patient states on Friday she developed chest discomfort on the right side of her chest. She states it was underneath her right breast. She states the pain was pretty much constant. She denied any radiation of the pain. She does report shortness of breath. She also endorses a low-grade fever at home. She states that she has also been having nausea, vomiting, and diarrhea. She states the pain is worse with deep inspiration and chest wall palpation. She also states that she was pressing on her chest and applying pressure to the area that hurt which would decrease the pain. Patient was found to have right sided pneumonia and was started on IV antibiotics. Patient is borderline hypotensive this morning with a blood pressure of 95/58. She was also febrile overnight with a temperature of 101.7. She is mildly tachycardic but remains in sinus mechanism. DIAGNOSTICS: - EKG reveals sinus tachycardia with nonspecific ST-T wave changes - Chest xray right sided pneumonia - CTA: Right sided pneumonia. Reactive mediastinal and hilar lymphadenopathy. No pulmonary embolism. 3.3 cm left adrenal nodule. - Laboratory data: WBC 25.8. Hemoglobin 10.8. Platelet count 305. Sodium 133. Potassium 3.8. BUN 14. Creatinine 0.69. AST 71. ALT 57. Troponin negative x 3. proBNP 710. - Current home cardiac medications include aspirin 81 mg daily, losartan 50 mg daily, rosuvastatin 10 mg daily - Most recent echocardiogram obtained in 2019 revealed ejection fraction 55 to 60%, trace MR, trace TR REVIEW OF SYSTEMS: At the time of my exam: CONSTITUTIONAL: Denies fever or chills. HEENT: Denies blurred vision, vision changes, or eye pain. Denies hemoptysis CARDIOVASCULAR: Denies chest pain. Denies orthopnea. Denies PND. Denies palpitations RESPIRATORY: Denies shortness of breath. GASTROINTESTINAL: Denies abdominal pain. Denies nausea or vomiting. HEMATOLOGIC: Denies bleeding disorders. GENITOURINARY: Denies any blood in urine. SKIN: Denies pruitis. Denies rash. PHYSICAL EXAM: VITAL SIGNS: Reviewed. GENERAL: Well-developed in no acute distress. HEENT: Head is normocephalic. Pupils are equal, round. Sclerae anicteric. Mucous membranes of the mouth are moist. Neck supple. No JVD or thyromegaly LUNGS: Respirations even and unlabored. Lungs essentially clear to auscultation bilaterally. HEART: Regular rate and rhythm. S1 and S2 heard. ABDOMEN: Soft. Nondistended. Nontender. EXTREMITIES: Normal range of motion. No clubbing or cyanosis. Peripheral pulses intact. No lower extremity edema NEUROLOGIC: Awake and alert. Oriented x 3. ASSESSMENT: Right sided pneumonia Sepsis/SIRS, patient with leukocytosis, tachycardia, and borderline hypotension Chest pain, troponin negative x 3, secondary to pneumonia, ACS ruled out Hypertension Hyperlipidemia Diabetes Morbid obesity: BMI 38.1 History of thyroidectomy and 2019 secondary to goiter Iron's Fibromyalgia Mild carotid stenosis, per patient due to recent Doppler outpatient PLAN: An acute coronary event has been ruled out Obtain 2D echo to assess cardiac structure and function Resume home cardiac medications Hold losartan secondary to soft blood pressures Physiological sinus tachycardia secondary to infectious process. No indication for beta-dony at this time. Continue to treat underlying cause. Recommend outpatient stress testing Further recommendations pending patient course Nurse practitioner note has been reviewed by physician. Signing provider agrees with the documented findings, assessment, and plan of care documented by [employer] as a scribe. Past Medical History Past Medical History: Diabetes Mellitus, Thyroid Disorder History of Any Multi-Drug Resistant Organisms: None Reported Past Surgical History: Orthopedic Surgery Additional Past Surgical History / Comment(s): left wrist rugery post work accident, sliced arm open 18 inches with a icebox man, plan for total thyroidectomy Jul 08 Past Anesthesia/Blood Transfusion Reactions: No Reported Reaction Additional Past Anesthesia/Blood Transfusion Reaction / Comment(s): no previous blood transfusion Past Psychological History: Depression Smoking Status: Current every day smoker Past Alcohol Use History: None Reported Past Drug Use History: None Reported - Past Family History Mother Additional Family Medical History / Comment(s): multiple sclerosis Father Additional Family Medical History / Comment(s): ETOH Medications and Allergies Home Medications Medication Instructions Recorded Confirmed Type Aspirin EC [Ecotrin Low Dose] 81 mg PO DAILY@1200 11/08/21 07/04/24 History Acetaminophen [Tylenol] 975 mg PO Q6H PRN 07/04/24 07/04/24 History Ergocalciferol (Vitamin D2) 1,250 mcg PO QMONTHLY 07/04/24 07/04/24 History [Drisdol (50,000 Iu)] Gabapentin [Neurontin] 600 mg PO TID@1000,1600,2200 07/04/24 07/04/24 History Insulin Glargine,Hum.rec.anlog 35 units SQ DAILY@192907/04/24 07/04/24 History [Lantus Solostar Pen] Levothyroxine Sodium [Synthroid] 200 mcg PO DAILY@0700 07/04/24 07/04/24 History Losartan [Cozaar] 50 mg PO DAILY@19307/04/24 07/04/24 History Pioglitazone [Actos] 30 mg PO DAILY@1200 07/04/24 07/04/24 History Rosuvastatin [Crestor] 10 mg PO DAILY@1200 07/04/24 07/04/24 History buPROPion HCL [buPROPion HCL XL] 300 mg PO DAILY@0800 07/04/24 07/04/24 History Allergies Allergy/AdvReac Type Severity Reaction Status Date / Time Penicillins Allergy Anaphylaxis Verified 07/04/24 09:42 Physical Exam Vitals: Vital Signs Temp Pulse Resp BP Pulse Ox 07/04/24 06:04 103 H 20 103/56 95 07/04/24 05:26 107 H 07/04/24 05:09 98 07/04/24 04:34 101.7 F H 103 H 20 126/74 96 07/04/24 03:05 98.3 F 107 H 18 124/65 99 Intake and Output 07/03/24 07/04/24 07/04/24 22:59 06:59 14:59 Other: Weight 110.223 kg Results 07/04/24 03:10 07/04/24 03:10 Cardiac Enzymes 07/04/24 07/04/24 07/04/24 Range/Units 03:10 03:10 04:30 AST 71 H (14-36) U/L Troponin I <0.012 <0.012 (0.000-0.034) ng/mL 07/04/24 Range/Units 07:15 AST (14-36) U/L Troponin I <0.012 (0.000-0.034) ng/mL Coagulation 07/04/24 Range/Units 03:10 PT 12.1 (10.0-12.5) sec APTT 29.6 (22.0-30.0) sec CBC 07/04/24 Range/Units 03:10 WBC 25.8 H (3.8-10.6) k/uL RBC 3.61 L (3.80-5.40) m/uL Hgb 10.8 L (11.4-16.0) gm/dL Hct 33.2 L (34.0-46.0) % Plt Count 305 (150-450) k/uL Comprehensive Metabolic Panel 07/04/24 Range/Units 03:10 Sodium 133 L (137-145) mmol/L Potassium 3.8 (3.5-5.1) mmol/L Chloride 101 (98-107) mmol/L Carbon Dioxide 21 L (22-30) mmol/L BUN 14 (7-17) mg/dL Creatinine 0.69 (0.52-1.04) mg/dL Glucose 132 H (74-99) mg/dL Calcium 7.6 L (8.4-10.2) mg/dL AST 71 H (14-36) U/L ALT 56 H (4-34) U/L Alkaline Phosphatase 83 (38-126) U/L Total Protein 6.7 (6.3-8.2) g/dL Albumin 3.6 (3.5-5.0) g/dL Current Medications Generic Name Dose Route Start Last Admin Trade Name Freq PRN Reason Stop Dose Admin Albuterol Sulfate 2.5 mg 07/04/24 04:11 Albuterol Nebulized 2.5 Mg/3 Ml INHALATION RT-Q4H PRN Shortness Of Breath Or Wheezing Sodium Chloride 1,000 mls @ 100 mls/hr 07/04/24 02:58 07/04/24 03:12 Saline 0.9% IV 07/04/24 12:57 100 mls/hr .Q10H STA Administration Sodium Chloride 1,000 mls @ 150 mls/hr 07/04/24 04:15 07/04/24 05:21 Saline 0.9% IV 150 mls/hr .Q6H40M SILVANA Administration Ceftriaxone Sodium 2 gm/ 50 mls @ 100 mls/hr 07/05/24 09:00 Sodium Chloride IVPB 07/08/24 09:29 Q24HR SILVANA Protocol Azithromycin 500 mg/ Sodium 250 mls @ 250 mls/hr 07/05/24 09:00 Chloride IVPB 07/08/24 08:59 DAILY SILVANA Protocol Miscellaneous Information 1 each 07/04/24 04:11 Pneumonia Protocol Utilized 1 Each Misc PO ONCE PRN Per Protocol Intake and Output 07/03/24 07/04/24 07/04/24 22:59 06:59 14:59 Other: Weight 110.223 kg 07/04/24 03:10 07/04/24 03:10
[2024-07-04] MEDS: INSULIN ASPART (NovoLOG) 100 UNIT/ML VIAL SQ SCH (12:28)
[2024-07-04 12:29] LABS: Glucose,Whole Blood 147 mg/dL (70-110)
[2024-07-04] MEDS: ASPIRIN 81 MG PO SCH (12:29)
[2024-07-04] MEDS: ATORVASTATIN 20 MG TAB PO SCH (12:29)
--- NOTE | 2024-07-04 13:06 | P.CNPUL ---
History of Present Illness Consult date: 07/04/24 Requesting physician: Ever Coats Reason for consult: dyspnea, cough, abnormal CXR/CT Chief complaint: Fatigue, fever, congestion History of present illness: This is a 53-year-old female patient who follows with Dr. Wheeler as her primary care provider. She has a history of hypertension, hyperlipidemia, diabetes mellitus, Iron's status post thyroidectomy, degenerative joint disease, f ibromyalgia. She also has a 25-year history of smoking 1-1/2 packs/day however quit in December of this year. She resides in a homeless detention. She presented here to the emergency room today after a 24-hour history of fatigue, fever, right sided chest pain, vomiting and diarrhea. She denies any known sick contacts. No recent weight loss. No hemoptysis. Chest x-ray reveals a large consolidation in the right upper lobe. CT angiogram reveals no evidence of pulmonary embolism. There is right lung pneumonia. Reactive mediastinal and hilar lymphadenopathy. There is also a noted 3.3 cm left adrenal nodule. White count 25.8. Hemoglobin 10.8. Platelets 305. Sodium 133. Potassium 3.8. Bic arb 21. BUN 14. Creatinine 0.69. Glucose 147. Troponins negative x 3. proBNP 710. AST 71. ALT 56. Lipase 17. She is seen today in consultation in the emergency department. Sitting up on a stretcher. Awake and alert in no acute distress. Maintaining O2 saturations in the 90s on room air. Still with some right sided chest discomfort. Review of Systems REVIEW OF SYSTEMS: CONSTITUTIONAL: Positive for generalized weakness, fatigue. Denies any recent significant weight loss or weight gain. EYES: Denies change in vision. EARS, NOSE, MOUTH, THROAT: Denies headaches, denies sore throat. CARDIOVASCULAR: Positive for right sided chest pain, no palpitations or syncopal episodes. RESPIRATORY: Positive for shortness of breath, cough, congestion no hemoptysis. GASTROINTESTINAL: Positive for nausea, vomiting, diarrhea. GENITOURINARY: Denies hematuria, denies infections. MUSKULOSKELETAL: Denies pain, denies swelling. INTEGUMENTARY: Denies rash, denies eczema. NEUROLOGICAL: Denies recent memory loss, no recent seizure activity. PSYCHIATRIC: Denies anxiety, denies depression. HEMATOLOGIC/LYMPHATIC: Denies anemia, denies enlarged lymph nodes. Past Medical History Past Medical History: Diabetes Mellitus, Thyroid Disorder History of Any Multi-Drug Resistant Organisms: None Reported Past Surgical History: Orthopedic Surgery Additional Past Surgical History / Comment(s): left wrist rugery post work accident, sliced arm open 18 inches with a safe deposit box rental clerk, plan for total thyroidectomy Jul 08 Past Anesthesia/Blood Transfusion Reactions: No Reported Reaction Additional Past Anesthesia/Blood Transfusion Reaction / Comment(s): no previous blood transfusion Past Psychological History: Depression Smoking Status: Current every day smoker Past Alcohol Use History: None Reported Past Drug Use History: None Reported - Past Family History Mother Additional Family Medical History / Comment(s): multiple sclerosis Father Additional Family Medical History / Comment(s): ETOH Medications and Allergies Home Medications Medication Instructions Recorded Confirmed Type Aspirin EC [Ecotrin Low Dose] 81 mg PO DAILY@1200 11/08/21 07/04/24 History Acetaminophen [Tylenol] 975 mg PO Q6H PRN 07/04/24 07/04/24 History Ergocalciferol (Vitamin D2) 1,250 mcg PO QMONTHLY 07/04/24 07/04/24 History [Drisdol (50,000 Iu)] Gabapentin [Neurontin] 600 mg PO TID@1000,1600,2200 07/04/24 07/04/24 History Insulin Glargine,Hum.rec.anlog 35 units SQ DAILY@192907/04/24 07/04/24 History [Lantus Solostar Pen] Levothyroxine Sodium [Synthroid] 200 mcg PO DAILY@0707/04/24 07/04/24 History Losartan [Cozaar] 50 mg PO DAILY@192907/04/24 07/04/24 History Pioglitazone [Actos] 30 mg PO DAILY@119907/04/24 07/04/24 History Rosuvastatin [Crestor] 10 mg PO DAILY@119907/04/24 07/04/24 History buPROPion HCL [buPROPion HCL XL] 300 mg PO DAILY@0800 07/04/24 07/04/24 History Allergies Allergy/AdvReac Type Severity Reaction Status Date / Time Penicillins Allergy Anaphylaxis Verified 07/04/24 09:42 Physical Exam Vitals: Vital Signs Temp Pulse Resp BP Pulse Ox 07/04/24 12:34 100 F H 105 H 18 115/83 96 07/04/24 07:51 99 F 97 18 95/58 96 07/04/24 06:04 103 H 20 103/56 95 07/04/24 05:26 107 H 07/04/24 05:09 98 07/04/24 04:34 101.7 F H 103 H 20 126/74 96 07/04/24 03:05 98.3 F 107 H 18 124/65 99 Intake and Output 07/03/24 07/04/24 07/04/24 22:59 06:59 14:59 Other: Weight 110.223 kg GENERAL EXAM: Alert, 53-year-old female, on room air, fairly comfortable in no apparent distress. HEAD: Normocephalic. EYES: Normal reaction of pupils, equal size. NOSE: Clear with pink turbinates. THROAT: No erythema or exudates. Edentulous. NECK: No masses, no JVD. CHEST: No chest wall deformity. LUNGS: Equal air entry with scattered rhonchi over the right lung. CVS: S1 and S2 normal with no audible murmur, regular rhythm. ABDOMEN: No hepatosplenomegaly, normal bowel sounds, no guarding or rigidity. SPINE: No scoliosis or deformity SKIN: No rashes CENTRAL NERVOUS SYSTEM: No focal deficits, tone is normal in all 4 extremities. EXTREMITIES: There is no peripheral edema. No clubbing, no cyanosis. Peripheral pulses are intact. Results - Laboratory Findings CBC and BMP: 07/04/24 03:10 07/04/24 03:10 PT/INR, D-dimer PT 12.1 sec (10.0-12.5) 07/04/24 03:10 INR 1.1 (<1.2) 07/04/24 03:10 Abnormal lab findings: Abnormal Labs 07/04/24 07/04/24 07/04/24 03:10 03:10 12:27 WBC 25.8 H RBC 3.61 L Hgb 10.8 L Hct 33.2 L Neutrophils # 24.5 H Lymphocytes # 0.6 L Sodium 133 L Carbon Dioxide 21 L Glucose 132 H POC Glucose (mg/dL) 147 H Calcium 7.6 L Total Bilirubin 1.4 H AST 71 H ALT 56 H Lipase 17 L - Diagnostic Findings Chest x-ray: image reviewed CT scan - chest: image reviewed Assessment and Plan Assessment: Acute community-acquired pneumonia affecting mainly the right upper lung with significant infiltrate. Underlying malignancy not excluded Leukocytosis secondary to above Febrile illness secondary to above Left adrenal nodule measuring 3.3 cm Chronic tobacco dependence of greater than 25 years, quit in December of this year Hypertension Hyperlipidemia Diabetes mellitus Hypothyroidism status post thyroidectomy Fibromyalgia Homeless Plan: The patient was seen and evaluated Imaging, labs and medications reviewed Continue ceftriaxone and azithromycin Check a procalcitonin Obtain a sputum sample May require bronchoscopy Currently stable and on room air We will continue to follow and make further recommendations based on her clinical status I have personally seen and examined the patient, performed the documentation and the assessment and plan as written. Number of minutes spent on the visit: 20 Dictation was produced using [employer] dictation software. Please excuse any grammatical, word or spelling errors.
[2024-07-04] MEDS: ACETAMINOPHEN TAB 325 MG TAB PO PRN ×2 (13:29→14:46)
--- NOTE | 2024-07-04 13:41 | P.HPIM ---
History of Present Illness H&P Date: 07/04/24 History of present illness; patient is 53-year-old lady with past medical history significant for COPD, tobacco addiction, hypertension brought in the ER because of shortness of breath and chest pain. Patient stated that she has been short of breath for the last few days, shortness of breath is present on rest as on exertion. Patient was complaining of chest pain which is right-sided, located underneath her right breast, states it is sharp, reproducible, nonradiating, no aggravating or relieving factor associated with this chest pain. There is no complaint of fever or chills. There is no complaint of lightheadedness dizziness. Because of this chest pain and shortness of breath, patient came to the ED Initial lab work done in the ER showed WBC 25.8, hemoglobin 10.8, sodium 133, potassium 3.8, BUN 14, creatinine 0.69, glucose 132, calcium 7.6, bilirubin 1.4, AST 17, ALT 56 EKG done in the ER showed heart rate of 109 , no ST segment elevation or depression seen, no T-wave inversions seen. Chest x-ray done in the ER showed right sided pneumonia CT chest done showed right pneumonia Patient admitted to internal medicine service REVIEW OF SYSTEMS: CONSTITUTIONAL: No fever, no malaise, no fatigue. HEENT: No recent visual problems or hearing problems. Denied any sore throat. CARDIOVASCULAR: As mentioned above PULMONARY: As mentioned above GASTROINTESTINAL: No diarrhea, no nausea, no vomiting, no abdominal pain. NEUROLOGICAL: No headaches, no weakness, no numbness. HEMATOLOGICAL: Denies any bleeding or petechiae. GENITOURINARY: Denies any burning micturition, frequency, or urgency. MUSCULOSKELETAL/RHEUMATOLOGICAL: Denies any joint pain, swelling, or any muscle pain. ENDOCRINE: Denies any polyuria or polydipsia. The rest of the 14-point review of systems is negative. PHYSICAL EXAMINATION: GENERAL: The patient is alert and oriented x3, not in any acute distress. Well developed, well nourished. HEENT: Pupils are round and equally reacting to light. EOMI. No scleral icterus. No conjunctival pallor. Normocephalic, atraumatic. No pharyngeal erythema. No thyromegaly. CARDIOVASCULAR: S1 and S2 present. No murmurs, rubs, or gallops. PULMONARY: Chest is clear to auscultation, no wheezing or crackles. ABDOMEN: Soft, nontender, nondistended, normoactive bowel sounds. No palpable organomegaly. MUSCULOSKELETAL: No joint swelling or deformity. EXTREMITIES: No cyanosis, clubbing, or pedal edema. NEUROLOGICAL: Gross neurological examination did not reveal any focal deficits. SKIN: No rashes. Assessment and plan Bacterial pneumonia Sepsis Chest pain History of COPD Hypertension Hyperlipidemia Insulin-dependent diabetes mellitus Hypothyroidism Monitor vital signs Monitor CBC Monitor CMP Continue telemetry monitoring Ordered blood cultures Ordered sputum cultures Ordered breathing treatment Ordered IV Rocephin and azithromycin Ordered blood glucose monitoring, resume home insulin regimen Ordered 2D echo Consult pulmonary Consult ID Labs and medication were reviewed.. Continue same treatment. Continue with symptomatic treatment. Resume home medication. Monitor labs and vitals. DVT and GI prophylaxis. Further recommendations as per clinical course of the patient Dictation was produced using [employer] dictation software. please excuse any grammatical, word or spelling errors. Past Medical History Past Medical History: Diabetes Mellitus, Thyroid Disorder History of Any Multi-Drug Resistant Organisms: None Reported Past Surgical History: Orthopedic Surgery Additional Past Surgical History / Comment(s): left wrist rugery post work accident, sliced arm open 18 inches with a wire bound box machine helper, plan for total thyroidectomy Jul 08 Past Anesthesia/Blood Transfusion Reactions: No Reported Reaction Additional Past Anesthesia/Blood Transfusion Reaction / Comment(s): no previous blood transfusion Past Psychological History: Depression Smoking Status: Current every day smoker Past Alcohol Use History: None Reported Past Drug Use History: None Reported - Past Family History Mother Additional Family Medical History / Comment(s): multiple sclerosis Father Additional Family Medical History / Comment(s): ETOH Medications and Allergies Home Medications Medication Instructions Recorded Confirmed Type Aspirin EC [Ecotrin Low Dose] 81 mg PO DAILY@1200 11/08/21 07/04/24 History Acetaminophen [Tylenol] 975 mg PO Q6H PRN 07/04/24 07/04/24 History Ergocalciferol (Vitamin D2) 1,250 mcg PO QMONTHLY 07/04/24 07/04/24 History [Drisdol (50,000 Iu)] Gabapentin [Neurontin] 600 mg PO TID@1000,1600,2200 07/04/24 07/04/24 History Insulin Glargine,Hum.rec.anlog 35 units SQ DAILY@192907/04/24 07/04/24 History [Lantus Solostar Pen] Levothyroxine Sodium [Synthroid] 200 mcg PO DAILY@0707/04/24 07/04/24 History Losartan [Cozaar] 50 mg PO DAILY@1930 07/04/24 07/04/24 History Pioglitazone [Actos] 30 mg PO DAILY@1200 07/04/24 07/04/24 History Rosuvastatin [Crestor] 10 mg PO DAILY@1200 07/04/24 07/04/24 History buPROPion HCL [buPROPion HCL XL] 300 mg PO DAILY@0807/04/24 07/04/24 History Allergies Allergy/AdvReac Type Severity Reaction Status Date / Time Penicillins Allergy Anaphylaxis Verified 07/04/24 09:42 Physical Exam Vitals: Vital Signs Temp Pulse Resp BP Pulse Ox 07/04/24 07:51 99 F 97 18 95/58 96 07/04/24 06:04 103 H 20 103/56 95 07/04/24 05:26 107 H 07/04/24 05:09 98 07/04/24 04:34 101.7 F H 103 H 20 126/74 96 07/04/24 03:05 98.3 F 107 H 18 124/65 99 Intake and Output 07/03/24 07/04/24 07/04/24 22:59 06:59 14:59 Other: Weight 110.223 kg Results CBC & Chem 7: 07/04/24 03:10 07/04/24 03:10 Labs: Abnormal Lab Results - Last 24 Hours (Table) 07/04/24 07/04/24 Range/Units 03:10 03:10 WBC 25.8 H (3.8-10.6) k/uL RBC 3.61 L (3.80-5.40) m/uL Hgb 10.8 L (11.4-16.0) gm/dL Hct 33.2 L (34.0-46.0) % Neutrophils # 24.5 H (1.3-7.7) k/uL Lymphocytes # 0.6 L (1.0-4.8) k/uL Sodium 133 L (137-145) mmol/L Carbon Dioxide 21 L (22-30) mmol/L Glucose 132 H (74-99) mg/dL Calcium 7.6 L (8.4-10.2) mg/dL Total Bilirubin 1.4 H (0.2-1.3) mg/dL AST 71 H (14-36) U/L ALT 56 H (4-34) U/L Lipase 17 L (23-300) U/L
[2024-07-04 16:30] LABS: Glucose,Whole Blood 150 mg/dL (70-110)
[2024-07-04] MEDS: GABAPENTIN 300 MG CAP PO SCH (17:08)
[2024-07-04 19:52] LABS: Glucose,Whole Blood 153 mg/dL (70-110)
[2024-07-04] MEDS: ONDANSETRON 4 MG/2 ML VIAL IVP PRN (20:11)
[2024-07-04] MEDS: INSULIN DETEMIR (LEVEMIR) 100 UNIT/ML SYR SQ SCH (20:11)
[2024-07-04] MEDS: ALBUTEROL NEBULIZED 2.5 MG/3 ML INHALATION PRN (20:27)
--- NOTE | 2024-07-04 22:38 | P.CONS ---
History of Present Illness - Reason for Consult Consult date: 07/04/24 Pneumonia Requesting physician: Khoi Gonzalez - Chief Complaint Right-sided chest pain shortness of breath and cough x 3 days - History of Present Illness Patient is a 53-year-old female with a past medical history of again for diabetes mellitus hypothyroidism depression current everyday smoker presenting to the hospital for evaluation of increasing shortness of breath and right-sided chest pain in this patient symptoms started over the last 2 to 3 days patient denies any history of any trauma she has been complaining of chest pain describing it to be sharp moderate intensity mostly on the right side without any radiation with associated cough which is moderate intensity but not bringing up any sputum or hemoptysis has been complaining of some nausea and vo miting also having some diarrhea but no abdominal pain on presentation to the hospital patient was initially afebrile subsequently spiked a fever of 101.7 F patient was tachycardic but not hypotensive or hypoxic and no need for supplemental oxygen patient tested negative for influenza RSV and COVID she did have a white count of 25.8 with a left shift creatinine 0.69 liver enzymes are mildly elevated influenza RSV COVID testing was negative patient did have chest x-ray followed by CT angiogram of the chest large consolidation in the posterior right upper lobe patient has been admitted to the hospital started on Rocephin and Zithromax infectious disease was consulted for further management of antibiotic therapy Review of Systems Positive point and negatives has been mentioned in the HPI, complete review of systems was performed and all other systems are negative Past Medical History Past Medical History: Diabetes Mellitus, Thyroid Disorder History of Any Multi-Drug Resistant Organisms: None Reported Past Surgical History: Orthopedic Surgery Additional Past Surgical History / Comment(s): left wrist rugery post work accident, sliced arm open 18 inches with a box chipper, plan for total thyroidectomy Jul 08 Past Anesthesia/Blood Transfusion Reactions: No Reported Reaction Additional Past Anesthesia/Blood Transfusion Reaction / Comm: no previous blood transfusion Past Psychological History: Depression Smoking Status: Current every day smoker Past Alcohol Use History: None Reported Past Drug Use History: None Reported - Past Family History Mother Additional Family Medical History / Comment(s): multiple sclerosis Father Additional Family Medical History / Comment(s): ETOH Medications and Allergies Home Medications Medication Instructions Recorded Confirmed Type Aspirin EC [Ecotrin Low Dose] 81 mg PO DAILY@1200 11/08/21 07/04/24 History Acetaminophen [Tylenol] 975 mg PO Q6H PRN 07/04/24 07/04/24 History Ergocalciferol (Vitamin D2) 1,250 mcg PO QMONTHLY 07/04/24 07/04/24 History [Drisdol (50,000 Iu)] Gabapentin [Neurontin] 600 mg PO TID@1000,1600,2200 07/04/24 07/04/24 History Insulin Glargine,Hum.rec.anlog 35 units SQ DAILY@192907/04/24 07/04/24 History [Lantus Solostar Pen] Levothyroxine Sodium [Synthroid] 200 mcg PO DAILY@0707/04/24 07/04/24 History Losartan [Cozaar] 50 mg PO DAILY@19307/04/24 07/04/24 History Pioglitazone [Actos] 30 mg PO DAILY@1200 07/04/24 07/04/24 History Rosuvastatin [Crestor] 10 mg PO DAILY@1200 07/04/24 07/04/24 History buPROPion HCL [buPROPion HCL XL] 300 mg PO DAILY@0800 07/04/24 07/04/24 History Allergies Allergy/AdvReac Type Severity Reaction Status Date / Time Penicillins Allergy Anaphylaxis Verified 07/04/24 09:42 Physical Exam Vitals: Vital Signs Temp Pulse Resp BP Pulse Ox 07/04/24 07:51 99 F 97 18 95/58 96 07/04/24 06:04 103 H 20 103/56 95 07/04/24 05:26 107 H 07/04/24 05:09 98 07/04/24 04:34 101.7 F H 103 H 20 126/74 96 07/04/24 03:05 98.3 F 107 H 18 124/65 99 Intake and Output 07/03/24 07/04/24 07/04/24 22:59 06:59 14:59 Other: Weight 110.223 kg GENERAL DESCRIPTION: Middle-aged male lying in bed, no distress. No tachypnea or accessory muscle of respiration use. HEENT: Shows Pallor , no scleral icterus. Oral mucous membrane is dry. No pharyngeal erythema or thrush NECK: Trachea central, no thyromegaly. LUNGS: Unlabored breathing. Coarse breath sound on the right base HEART: S1, S2, regular rate and rhythm. No loud murmur ABDOMEN: Soft, no tenderness , guarding or rigidity, no organomegaly EXTREMITIES: No edema of feet. SKIN: No rash, no masses palpable. NEUROLOGICAL: The patient is awake, alert, oriented x3, mood and affect normal. Results CBC & Chem 7: 07/04/24 03:10 07/04/24 03:10 Labs: Abnormal Lab Results - Last 24 Hours (Table) 07/04/24 07/04/24 Range/Units 03:10 03:10 WBC 25.8 H (3.8-10.6) k/uL RBC 3.61 L (3.80-5.40) m/uL Hgb 10.8 L (11.4-16.0) gm/dL Hct 33.2 L (34.0-46.0) % Neutrophils # 24.5 H (1.3-7.7) k/uL Lymphocytes # 0.6 L (1.0-4.8) k/uL Sodium 133 L (137-145) mmol/L Carbon Dioxide 21 L (22-30) mmol/L Glucose 132 H (74-99) mg/dL Calcium 7.6 L (8.4-10.2) mg/dL Total Bilirubin 1.4 H (0.2-1.3) mg/dL AST 71 H (14-36) U/L ALT 56 H (4-34) U/L Lipase 17 L (23-300) U/L Assessment and Plan (1) Penicillin allergy Current Visit: Yes Status: Acute Code(s): Z88.0 - ALLERGY STATUS TO PENICILLIN SNOMED Code(s): 18804266 (2) Pneumonia Current Visit: Yes Status: Acute Code(s): J18.9 - PNEUMONIA, UNSPECIFIED ORGANISM SNOMED Code(s): 482621038 Plan: 1patient presented hospital with sepsis in this patient who did have fever tachycardia elevated white count source is her right-sided pneumonia likely community-acquired in this patient who did have a history of smoking. 2patient with a penicillin allergy that will limit number of antibiotics safe to use. 3patient also have elevated liver enzymes and especially with pain to the right side of the chest underlying gallbladder disease need to be rule out we will check ultrasound liver and gallbladder area. 4check a procalcitonin sputum for Gram stain culture and urine for Legionella antigen. 5patient will be treated with the Rocephin and Zithromax while waiting for the workup to be completed. We will follow on clinical condition and cultures to further adjust medication if needed Thank you for this consultation we will follow the patient along with you Dictation was produced using [employer] dictation software. please excuse any grammatical, word or spelling errors. Time with Patient: Greater than 30
[2024-07-05 06:07] LABS: Glucose,Whole Blood 101 mg/dL (70-110)
[2024-07-05] MEDS: LEVOTHYROXINE 100 MCG TAB PO SCH (06:18)
[2024-07-05] MEDS: buPROPion XL 300 MG TAB.ER.24H PO SCH (07:52)
[2024-07-05] MEDS: AZITHROMYCIN 500 MG in SODIUM CHLORIDE 0.9% 250 ML IVPB SCH (07:53)
[2024-07-05 08:01] LABS: African American GFR (CKD) >90 (>60 ml/min/1.73 sqM); Anion Gap 6 mmol/L; Blood Urea Nitrogen 8 mg/dL (7-17); Calcium 7.3 mg/dL (8.4-10.2); Carbon Dioxide 25 mmol/L (22-30); Chloride 105 mmol/L (98-107); Glucose 64 mg/dL (74-99); Non-African American GFR(CKD) >90 (>60 ml/min/1.73 sqM); Potassium 3.3 mmol/L (3.5-5.1); Sodium 136 mmol/L (137-145)
--- NOTE | 2024-07-05 08:10 | XR ---
EXAMINATION TYPE: XR chest 1V portable DATE OF EXAM: 07/05/2024 6:43 AM COMPARISON: Chest radiograph from one day prior. CLINICAL INDICATION: Female, 53 years old with history of pneumonia; [facility] TECHNIQUE: XR chest 1V portable Frontal view of the chest. FINDINGS: Lungs/Pleura: Right upper lung consolidation with airspace opacities remain similar to 07/04/2024. Th ere is no evidence of pleural effusion, focal consolidation, or pneumothorax. Pulmonary vascularity: Unremarkable. Heart/mediastinum: Cardiomediastinal silhouette is unremarkable. Musculoskeletal: No acute osseous pathology. IMPRESSION: Similar right upper lung airspace consolidation [facility], , 07/05/2024 8:08 AM
[2024-07-05 08:32] LABS: HCT 27.8 % (34.0-46.0); MCH 30.6 pg (25.0-35.0); MCHC 32.5 g/dL (31.0-37.0); Mean Platelet Volume 8.8; Platelet Count 295 k/uL (150-450); RBC 2.96 m/uL (3.80-5.40); RDW 13.3 % (11.5-15.5); WBC 16.1 k/uL (3.8-10.6)
--- NOTE | 2024-07-05 08:34 | US ---
EXAMINATION TYPE: US abdomen limited DATE OF EXAM: 07/05/2024 COMPARISON: NONE CLINICAL INDICATION: Female, 53 years old with history of Fever elevated liver enzymes; N/V. Patient states she hasn't ate in >24 hours and had been drinking water. TECHNIQUE: Grayscale and color Doppler imaging of the right upper quadrant was performed. FINDINGS: EXAM MEASUREMENTS: Liver Length: 22.8 cm Gallbladder Wall: 0.3 cm CBD: 0.3 cm Right Kidney: 12.8 x 4.8 x 4.4 cm Pancreas: Echogenic in appearance. Tail obscured by overlying bowel gas. Liver: Enlarged in size. Gallbladder: Appears small in size with no much lumen seen, could be contracted. Echogenic focus wi th shadowing = 1.5 cm. Evidence for sonographic Burrell's sign: neg CBD: wnl Right Kidney: No hydronephrosis or masses seen IMPRESSION: Contracted gallbladder with hyperechoic debris likely representing biliary sludge/small gallstones. [facility], , 07/05/2024 8:31 AM
[2024-07-05 08:41] LABS: HGB 9.1 gm/dL (11.4-16.0)
[2024-07-05] MEDS ORDERED: Potassium Replacement Protocol 1 EACH MISC MISCELLANE PRN (10:54)
[2024-07-05 11:46] LABS: Glucose,Whole Blood 104 mg/dL (70-110)
--- NOTE | 2024-07-05 11:47 | P.PN ---
Subjective Progress Note Date: 07/05/24 Principal diagnosis: Reason for follow-up is pneumonia Patient is a 53-year-old female with a past medical history of again for diabetes mellitus hypothyroidism depression current everyday smoker presenting to the hospital for evaluation of increasing shortness of breath and right-sided chest pain, patient be diagnosed with sepsis secondary to the right- sided pneumonia. On today's evaluation that is 07/05/2024,the patient did have resolution of her fever and is afebrile this morning, patient is on room air not requiring supplemental oxygen and denies any shortness of breath no chest pain continue to have a cough but is mostly dry in nature.Patient denies having any nausea or vomiting, no abdominal pain and no diarrhea. Patient white count is down to 16.1 creatinine 0.61 procalcitonin is 1.85 urine for urine antigen negative Objective - Vital Signs Vital signs: Vital Signs Temp 98.3 F 07/05/24 07:51 Pulse 88 07/05/24 07:51 Resp 18 07/05/24 07:51 BP 136/79 07/05/24 07:51 Pulse Ox 99 07/05/24 07:51 FiO2 Intake & Output 07/04/24 07/05/24 07/05/24 18:59 06:59 18:59 Intake Total 118 355 Balance 118 355 Weight 110.223 kg 111.2 kg Intake: Oral 118 355 Other: Voiding Method Toilet # Voids 2 - Exam GENERAL DESCRIPTION: Middle-age female lying in bed in no distress RESPIRATORY SYSTEM: Unlabored breathing , decreased breath sounds at bases HEART: S1 S2 regular rate and rhythm , ABDOMEN: Soft , no tenderness EXTREMITIES: No edema feet - Labs CBC & Chem 7: 07/05/24 06:27 07/05/24 06:27 Labs: Abnormal Lab Results - Last 24 Hours (Table) 07/04/24 07/04/24 07/04/24 Range/Units 03:10 12:27 16:29 WBC (3.8-10.6) k/uL RBC (3.80-5.40) m/uL Hgb (11.4-16.0) gm/dL Hct (34.0-46.0) % Sodium (137-145) mmol/L Potassium (3.5-5.1) mmol/L Glucose (74-99) mg/dL POC Glucose (mg/dL) 147 H 150 H (70-110) mg/dL Calcium (8.4-10.2) mg/dL Procalcitonin 1.85 H (0.02-0.50) ng/mL 07/04/24 07/05/24 07/05/24 Range/Units 19:50 06:27 06:27 WBC 16.1 H (3.8-10.6) k/uL RBC 2.96 L (3.80-5.40) m/uL Hgb 9.1 L D (11.4-16.0) gm/dL Hct 27.8 L (34.0-46.0) % Sodium 136 L (137-145) mmol/L Potassium 3.3 L (3.5-5.1) mmol/L Glucose 64 L (74-99) mg/dL POC Glucose (mg/dL) 153 H (70-110) mg/dL Calcium 7.3 L (8.4-10.2) mg/dL Procalcitonin (0.02-0.50) ng/mL Assessment and Plan (1) Penicillin allergy Current Visit: Yes Status: Acute Code(s): Z88.0 - ALLERGY STATUS TO PENI CILLIN SNOMED Code(s): 22683016 (2) Pneumonia Current Visit: Yes Status: Acute Code(s): J18.9 - PNEUMONIA, UNSPECIFIED ORGANISM SNOMED Code(s): 017361000 Plan: 1patient presented to the hospital with sepsis in this patient who did have fever tachycardia elevated white count source is her right-sided pneumonia likely community-acquired in this patient who did have a history of smoking. 2patient with a penicillin allergy that will limit number of antibiotics safe to use. 3patient also have elevated liver enzymes patient did have ultrasound liver and gallbladder area did show contracted gallbladder but no wall thickness or features of cholestasis. 4patient did have elevated procalcitonin urine for Legionella antigen negative sputum not collected 5patient to continue with the Rocephin and Zithromax while waiting for the cultures to be finalized Dictation was produced using [employer] dictation software. please excuse any grammatical, word or spelling errors. Time with Patient: Less than 30
[2024-07-05] MEDS: POTASSIUM CHLORIDE ER 20 MEQ TAB.ER PO SCH (11:48)
--- NOTE | 2024-07-05 12:37 | P.PN ---
Subjective Progress Note Date: 07/05/24 patient is 53-year-old lady with past medical history significant for COPD, tobacco addiction, hypertension brought in the ER because of shortness of breath and chest pain. Patient stated that she has been short of breath for the last few days, shortness of breath is present on rest as on exertion. Patient was complaining of chest pain which is right-sided, located underneath her right breast, states it is sharp, reproducible, nonradiating, no aggravating or relieving factor associated with this chest pain. There is no complaint of fever or chills. There is no complaint of lightheadedness dizziness. Because of this chest pain and shortness of breath, patient came to the ED Initial lab work done in the ER showed WBC 25.8, hemoglobin 10.8, sodium 133, potassium 3.8, BUN 14, creatinine 0.69, glucose 132, calcium 7.6, bilirubin 1.4, AST 17, ALT 56 EKG done in the ER showed heart rate of 109 , no ST segment elevation or depression seen, no T-wave inversions seen. Chest x-ray done in the ER showed right sided pneumonia CT chest done showed right pneumonia Patient admitted to internal medicine service 07/05. Patient seen and examined. Complaining of lethargic and weakness. Gets short of breath on exertion REVIEW OF SYSTEMS: CONSTITUTIONAL: No fever, no malaise,. CARDIOVASCULAR: No chest pain, no palpitations, no syncope. PULMONARY: As mentioned above GASTROINTESTINAL: No diarrhea, no nausea, no vomiting, no abdominal pain. NEUROLOGICAL: No headaches, no weakness, PHYSICAL EXAMINATION: GENERAL: The patient is alert and oriented x3, not in any acute distress. Well developed, well nourished. HEENT: Pupils are round and equally reacting to light. EOMI. No scleral icterus. No conjunctival pallor. Normocephalic, atraumatic. No pharyngeal erythema. No thyromegaly. CARDIOVASCULAR: S1 and S2 present. No murmurs, rubs, or gallops. PULMONARY: Diminished breath sound the bases bilaterally, no wheezing or crackles. ABDOMEN: Soft, nontender, nondistended, normoactive bowel sounds. No palpable organomegaly. MUSCULOSKELETAL: No joint swelling or deformity. EXTREMITIES: No cyanosis, clubbing, or pedal edema. NEUROLOGICAL: Gross neurological examination did not reveal any focal deficits. SKIN: No rashes. Assessment and plan Bacterial pneumonia Sepsis Chest pain History of COPD Hypertension Hyperlipidemia Hyponatremia Hypokalemia Insulin-dependent diabetes mellitus Hypothyroidism Monitor vital signs Monitor CBC Monitor CMP Continue telemetry monitoring Follow-up on blood cultures Follow-up on sputum cultures Continue breathing treatment Continue IV Rocephin and azithromycin Continue blood glucose monitoring, continue current insulin regimen Ultrasound abdomen done showed contracted gallbladder with debris Ordered 2D echo Pulmonary following ID following Labs and medication were reviewed.. Continue same treatment. Continue with symptomatic treatment. Resume home medication. Monitor labs and vitals. DVT and GI prophylaxis. Further recommendations as per clinical course of the patient Dictation was produced using [employer] dictation software. please excuse any grammatical, word or spelling errors. Objective - Vital Signs Vital signs: Vital Signs Temp 98.3 F 07/05/24 07:51 Pulse 88 07/05/24 07:51 Resp 18 07/05/24 07:51 BP 136/79 07/05/24 07:51 Pulse Ox 99 07/05/24 07:51 FiO2 Intake & Output 07/04/24 07/05/24 07/05/24 18:59 06:59 18:59 Intake Total 118 355 Balance 118 355 Weight 110.223 kg 111.2 kg Intake: Oral 118 355 Other: Voiding Method Toilet # Voids 2 - Labs CBC & Chem 7: 07/05/24 06:27 07/05/24 06:27 Labs: Abnormal Lab Results - Last 24 Hours (Table) 07/04/24 07/04/24 07/04/24 Range/Units 03:10 12:27 16:29 WBC (3.8-10.6) k/uL RBC (3.80-5.40) m/uL Hgb (11.4-16.0) gm/dL Hct (34.0-46.0) % Sodium (137-145) mmol/L Potassium (3.5-5.1) mmol/L Glucose (74-99) mg/dL POC Glucose (mg/dL) 147 H 150 H (70-110) mg/dL Calcium (8.4-10.2) mg/dL Procalcitonin 1.85 H (0.02-0.50) ng/mL 07/04/24 07/05/24 07/05/24 Range/Units 19:50 06:27 06:27 WBC 16.1 H (3.8-10.6) k/uL RBC 2.96 L (3.80-5.40) m/uL Hgb 9.1 L D (11.4-16.0) gm/dL Hct 27.8 L (34.0-46.0) % Sodium 136 L (137-145) mmol/L Potassium 3.3 L (3.5-5.1) mmol/L Glucose 64 L (74-99) mg/dL POC Glucose (mg/dL) 153 H (70-110) mg/dL Calcium 7.3 L (8.4-10.2) mg/dL Procalcitonin (0.02-0.50) ng/mL
--- NOTE | 2024-07-05 14:09 | P.PN ---
Subjective Progress Note Date: 07/05/24 This is a 53-year-old female patient who follows with Dr. Wheeler as her primary care provider. She has a history of hypertension, hyperlipidemia, diabetes mellitus, Iron's status post thyroidectomy, degenerative joint disease, fibromyalgia. She also has a 25-year history of smoking 1-1/2 packs/day however quit in December of this year. She resides in a homeless halfway. She presented here to the emergency room today after a 24-hour history of fatigue, fever, right sided chest pain, vomiting and diarrhea. She denies any known sick contacts. No recent weight loss. No hemoptysis. Chest x-ray reveals a large consolidation in the right upper lobe. CT angiogram reveals no evidence of pulmonary embolism. There is right lung pneumonia. Reactive mediastinal and hilar lymphadenopathy. There is also a noted 3.3 cm left adrenal nodule. White count 25.8. Hemoglobin 10.8. Platelets 305. Sodium 133. Potassium 3.8. Bicarb 21. BUN 14. Creatinine 0.69. Glucose 147. Troponins negative x 3. proBNP 710. AST 71. ALT 56. Lipase 17. She is seen today in consultation in the emergency department. Sitting up on a stretcher. Awake and alert in no acute distress. Maintaining O2 saturations in the 90s on room air. Still with some right sided chest discomfort. The patient is seen today July 05, 2024 in follow-up on the selective care unit. She is currently sitting up in bed. Awake and alert in no acute distress. Breathing easier today compared to yesterday. Maintaining O2 saturations in the 90s on room air. She has normal saline at 100 mL/h. Her procalcitonin was 1.85. She is continued on ceftriaxone and azithromycin. Blood cultures pending. White count 16.1. Hemoglobin 9.1. Platelets 295. Sodium 136. Potassium 3.3. Bicarb 25. BUN 8. Creatinine 0.63. Glucose 104. Chest x-ray reveals similar right upper lobe airspace consolidation. Abdominal ultrasound reveals contracted gallbladder with hyperechoic debris likely representing biliary sludge/small gallstones. Objective - Vital Signs Vital signs: Vital Signs Temp 98.3 F 07/05/24 07:51 Pulse 91 07/05/24 11:47 Resp 16 07/05/24 11:47 BP 109/67 07/05/24 11:47 Pulse Ox 95 07/05/24 11:47 FiO2 Intake & Output 07/04/24 07/05/24 07/05/24 18:59 06:59 18:59 Intake Total 118 355 Balance 118 355 Weight 110.223 kg 111.2 kg Intake: Oral 118 355 Other: Voiding Method Toilet # Voids 2 - Exam GENERAL EXAM: Alert, 53-year-old female, on room air, resting in bed, comfortable in no apparent distress. HEAD: Normocephalic. EYES: Normal reaction of pupils, equal size. NOSE: Clear with pink turbinates. THROAT: No erythema or exudates. Edentulous. NECK: No masses, no JVD. CHEST: No chest wall deformity. LUNGS: Equal air entry with scattered rhonchi over the right lung. CVS: S1 and S2 normal with no audible murmur, regular rhythm. ABDOMEN: No hepatosplenomegaly, normal bowel sounds, no guarding or rigidity. SPINE: No scoliosis or deformity SKIN: No rashes CENTRAL NERVOUS SYSTEM: No focal deficits, tone is normal in all 4 extremities. EXTREMITIES: There is no peripheral edema. No clubbing, no cyanosis. Peripheral pulses are intact. - Labs CBC & Chem 7: 07/05/24 06:27 07/05/24 06:27 Labs: Abnormal Lab Results - Last 24 Hours (Table) 07/04/24 07/04/24 07/04/24 Range/Units 03:10 16:29 19:50 WBC (3.8-10.6) k/uL RBC (3.80-5.40) m/uL Hgb (11.4-16.0) gm/dL Hct (34.0-46.0) % Sodium (137-145) mmol/L Potassium (3.5-5.1) mmol/L Glucose (74-99) mg/dL POC Glucose (mg/dL) 150 H 153 H (70-110) mg/dL Calcium (8.4-10.2) mg/dL Procalcitonin 1.85 H (0.02-0.50) ng/mL 07/05/24 07/05/24 Range/Units 06:27 06:27 WBC 16.1 H (3.8-10.6) k/uL RBC 2.96 L (3.80-5.40) m/uL Hgb 9.1 L D (11.4-16.0) gm/dL Hct 27.8 L (34.0-46.0) % Sodium 136 L (137-145) mmol/L Potassium 3.3 L (3.5-5.1) mmol/L Glucose 64 L (74-99) mg/dL POC Glucose (mg/dL) (70-110) mg/dL Calcium 7.3 L (8.4-10.2) mg/dL Procalcitonin (0.02-0.50) ng/mL Microbiology - Last 24 Hours (Table) 07/04/24 04:30 Blood Culture - Preliminary Blood Assessment and Plan Assessment: Acute community-acquired pneumonia affecting mainly the right upper lung with significant infiltrate. Underlying malignancy not excluded Leukocytosis secondary to above Febrile illness secondary to above Left adrenal nodule measuring 3.3 cm Cholelithiasis Chronic tobacco dependence of greater than 25 years, quit in December of this year Hypertension Hyperlipidemia Diabetes mellitus Hypothyroidism status post thyroidectomy Fibromyalgia Homeless Plan: The patient was seen and evaluated Imaging, labs and medications reviewed Continue ceftriaxone and azithromycin Obtain a sputum sample Currently stable and on room air We will continue to follow I have personally seen and examined the patient, performed the documentation and the assessment and plan as written. Number of minutes spent on the visit: 10 Dictation was produced using [employer] dictation software. Please excuse any grammatical, word or spelling errors.
--- NOTE | 2024-07-05 14:20 | P.PN ---
Subjective Progress Note Date: 07/05/24 HISTORY OF PRESENT ILLNESS: This is a 53-year-old female with a past medical history significant for hy pertension, hyperlipidemia, diabetes, morbid obesity, thyroidectomy in 2019 due to goiter, Iron's, fibromyalgia, and carotid stenosis. 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 We have been asked to see the patient in consultation for chest pain. Patient examined at the bedside. Patient states on Friday she developed chest discomfort on the right side of her chest. She states it was underneath her right breast. She states the pain was pretty much constant. She denied any radiation of the pain. She does report shortness of breath. She also endorses a low-grade fever at home. She states that she has also been having nausea, vomiting, and diarrhea. She states the pain is worse with deep inspiration and chest wall palpation. She also states that she was pressing on her chest and applying pressure to the area that hurt which would decrease the pain. Patient was found to have right sided pneumonia and was started on IV antibiotics. Patient is borderline hypotensive this morning with a blood pressure of 95/58. She was also febrile overnight with a temperature of 101.7. She is mildly tachycardic but remains in sinus mechanism. DIAGNOSTICS: - EKG reveals sinus tachycardia with nonspecific ST-T wave changes - Chest xray right sided pneumonia - CTA: Right sided pneumonia. Reactive mediastinal and hilar lymphadenopathy. No pulmonary embolism. 3.3 cm left adrenal nodule. - Laboratory data: WBC 25.8. Hemoglobin 10.8. Platelet count 305. Sodium 133. Potassium 3.8. BUN 14. Creatinine 0.69. AST 71. ALT 57. Troponin negative x 3. proBNP 710. - Current home cardiac medications include aspirin 81 mg daily, losartan 50 mg daily, rosuvastatin 10 mg daily - Most recent echocardiogram obtained in 2019 revealed ejection fraction 55 to 60%, trace MR, trace TR 07/05/2024 Patient seen and examined. She denies having any chest pain or chest pressure. She denies any sputum production. She feels she is tired and has a headache. She also complains of some lightheadedness and dizziness even at rest. Losartan is on hold due to low blood pressure readings. Blood pressures today 109/67- 136/79, heart rate 88, pulse ox 99% on room air. Repeat blood work reveals hemoglobin 9.1. Sodium 136, potassium 3.3, creatinine 0.61. Potassium has been replaced. Echocardiogram reveals EF of 55 to 60%, mild concentric LVH. No obvious regional wall motion abnormality. No significant valvular dysfunction. No significant chamber size abnormality. PHYSICAL EXAM: VITAL SIGNS: Reviewed. GENERAL: Well-developed in no acute distress. HEENT: Head is normocephalic. Pupils are equal, round. Sclerae anicteric. Mucous membranes of the mouth are moist. Neck supple. No JVD or thyromegaly LUNGS: Respirations even and unlabored. Lungs essentially clear to auscultation bilaterally. HEART: Regular rate and rhythm. S1 and S2 heard. ABDOMEN: Soft. Nondistended. Nontender. EXTREMITIES: Normal range of motion. No clubbing or cyanosis. Peripheral pulses intact. No lower extremity edema NEUROLOGIC: Awake and alert. Oriented x 3. ASSESSMENT: Right sided pneumonia Sepsis/SIRS, patient with leukocytosis, tachycardia, and borderline hypotension Chest pain, troponin negative x 3, secondary to pneumonia, ACS ruled out Hypertension Hyperlipidemia Diabetes Morbid obesity: BMI 38.1 History of thyroidectomy and 2019 secondary to goiter Iron's Fibromyalgia Mild carotid stenosis, per patient due to recent Doppler outpatient PLAN: An acute coronary event has been ruled out Continue home cardiac medications Hold losartan secondary to soft blood pressures Physiological sinus tachycardia secondary to infectious process. No indication for beta-dony at this time. Continue to treat underlying cause. Recommend outpatient stress testing No further cardiac workup at this time Cardiology will sign off this case and follow on an as-needed basis. Please reconsult for any new concerns. Patient may follow-up in the office in one to [address] Bailey. Nurse practitioner note has been reviewed by physician. Signing provider agrees with the documented findings, assessment, and plan of care documented by [employer] REM[employer] as a scribe. Objective - Vital Signs Vital signs: Vital Signs Temp 98.3 F 07/05/24 07:51 Pulse 88 07/05/24 07:51 Resp 18 07/05/24 07:51 BP 136/79 07/05/24 07:51 Pulse Ox 99 07/05/24 07:51 FiO2 Intake & Output 07/04/24 07/05/24 07/05/24 18:59 06:59 18:59 Intake Total 118 355 Balance 118 355 Weight 110.223 kg 111.2 kg Intake: Oral 118 355 Other: Voiding Method Toilet # Voids 2 - Labs CBC & Chem 7: 07/06/24 06:23 07/06/24 06:23 Labs: Abnormal Lab Results - Last 24 Hours (Table) 07/04/24 07/04/24 07/04/24 Range/Units 03:10 12:27 16:29 WBC (3.8-10.6) k/uL RBC (3.80-5.40) m/uL Hgb (11.4-16.0) gm/dL Hct (34.0-46.0) % Sodium (137-145) mmol/L Potassium (3.5-5.1) mmol/L Glucose (74-99) mg/dL POC Glucose (mg/dL) 147 H 150 H (70-110) mg/dL Calcium (8.4-10.2) mg/dL Procalcitonin 1.85 H (0.02-0.50) ng/mL 07/04/24 07/05/24 07/05/24 Range/Units 19:50 06:27 06:27 WBC 16.1 H (3.8-10.6) k/uL RBC 2.96 L (3.80-5.40) m/uL Hgb 9.1 L D (11.4-16.0) gm/dL Hct 27.8 L (34.0-46.0) % Sodium 136 L (137-145) mmol/L Potassium 3.3 L (3.5-5.1) mmol/L Glucose 64 L (74-99) mg/dL POC Glucose (mg/dL) 153 H (70-110) mg/dL Calcium 7.3 L (8.4-10.2) mg/dL Procalcitonin (0.02-0.50) ng/mL
--- NOTE | 2024-07-05 15:09 | CA ---
Transthoracic Echo Report Name: Julia Sevilla Age: 53 Gender: F : 1970 Exam Date: 07/05/2024 09:20 Exam Location: [facility] Ht (in): 67 Wt (lb): 243 Ordering Physician: Daly Jacobo Attending/Referring Phys: [id number], Od[employer] Staff Nurse Rosalie Bee, TERESITA Procedure CPT: Indications: LV function, CP, pneumonia Cardiac Hx: Technical Quality: Fair Contrast 1: Total Dose (mL): Contrast 2: Total Dose (mL): MEASUREMENTS (Male / Female) Normal Values 2D ECHO LV Diastolic Diameter PLAX 5.0 cm 4.2 - 5.9 / 3.9 - 5.3 cm LV Systolic Diameter PLAX 3.4 cm IVS Diastolic Thickness 1.2 cm 0.6 - 1.0 / 0.6 - 0.9 cm LVPW Diastolic Thickness 1.1 cm 0.6 - 1.0 / 0.6 - 0.9 cm LV Relative Wall Thickness 0.5 RV Internal Dim ED PLAX 3.7 cm LA Systolic Diameter LX 3.7 cm 3.0 - 4.0 / 2.7 - 3.8 cm LV Diastolic Volume MOD 4C 116.4 cm??? LV Systolic Volume MOD 4C 50.9 cm??? LV Ejection Fraction MOD 4C 56.2 % LV Cardiac Index MOD 4C 2583.5 cm???/min???m??? LV Diastolic Length 4C 7.8 cm LV Systolic Length 4C 6.8 cm LV Diastolic Volume MOD 2C 101.6 cm??? LV Systolic Volume MOD 2C 60.1 cm??? LV Ejection Fraction MOD 2C 40.9 % LV Cardiac Index MOD 2C 1638.7 cm???/min???m??? LV Diastolic Length 2C 7.2 cm LV Systolic Length 2C 5.9 cm M-MODE Aortic Root Diameter MM 3.6 cm AV Cusp Separation MM 2.5 cm DOPPLER AV Peak Velocity 143.1 cm/s AV Peak Gradient 8.2 mmHg Mitral E Point Velocity 121.1 cm/s Mitral A Point Velocity 95.7 cm/s Mitral E to A Ratio 1.3 MV Deceleration Time 214.5 ms MV E' Velocity 10.6 cm/s Mitral E to MV E' Ratio 11.4 FINDINGS Left Ventricle Left ventricular ejection fraction is estimated at 55-60 %. Mildly increased septal wall thickness. Mildly increased posterior wall thickness. Left ventricular cavity size normal. Normal left ventricular wall motion. Right Ventricle Normal RV size and systolic function. Unable to estimate the right ventricular systolic pressure. Right Atrium Normal right atrial size. No right atrial thrombus or mass seen. Left Atrium Normal left atrial size. No left atrial thrombus or mass present. Mitral Valve Structurally normal mitral valve. Trace to mild mitral regurgitation. Aortic Valve Trileaflet aortic valve. No aortic valve stenosis or regurgitation. Tricuspid Valve Structurally normal tricuspid valve. No tricuspid stenosis, regurgitation or prolapse. Pulmonic Valve Structurally normal pulmonic valve. No pulmonic regurgitation. Pericardium No pericardial or pleural effusion. Aorta Normal size aortic root and proximal ascending aorta. CONCLUSIONS LVEF 55 to 60% Mild concentric LVH No obvious regional wall motion abnormality No significant valvular dysfunction No significant chamber size abnormality Previewed by: Dr Delfino Lai (Electronically Signed) Final Date: 05 July 2024 15:08
[2024-07-05 16:06] LABS: Glucose,Whole Blood 125 mg/dL (70-110)
[2024-07-05] MEDS: LACTOBACILLUS ACIDOPHILUS/PECT 1 EACH CAPSULE PO SCH (16:46)
[2024-07-05 20:31] LABS: Glucose,Whole Blood 139 mg/dL (70-110)
[2024-07-05 20:58] VITALS: RESP 20
[2024-07-06 06:03] LABS: Glucose,Whole Blood 73 mg/dL (70-110)
[2024-07-06 06:55] LABS: Basophils # (A) 0.1 k/uL (0-0.2); Basophils % (A) 0 %; Eosinophils # (A) 0.2 k/uL (0-0.7); Eosinophils % (A) 2 %; HCT 28.2 % (34.0-46.0); HGB 9.1 gm/dL (11.4-16.0); Lymphocytes % (A) 8 %; MCH 30.3 pg (25.0-35.0); MCHC 32.4 g/dL (31.0-37.0); MCV 93.6 fL (80.0-100.0); Mean Platelet Volume 8.1; Monocytes # (A) 0.7 k/uL (0-1.0); Monocytes % (A) 6 %; Neutrophils # (A) 10.4 k/uL (1.3-7.7); Neutrophils % (A) 82 %; Platelet Count 302 k/uL (150-450); RBC 3.01 m/uL (3.80-5.40); RDW 13.3 % (11.5-15.5); WBC 12.6 k/uL (3.8-10.6)
[2024-07-06 07:16] LABS: ALT 29 U/L (4-34); AST 19 U/L (14-36); African American GFR (CKD) >90 (>60 ml/min/1.73 sqM); Alkaline Phosphatase 95 U/L (38-126); Anion Gap 4 mmol/L; Blood Urea Nitrogen 7 mg/dL (7-17); Calcium 7.6 mg/dL (8.4-10.2); Carbon Dioxide 30 mmol/L (22-30); Chloride 104 mmol/L (98-107); Glucose 75 mg/dL (74-99); Non-African American GFR(CKD) >90 (>60 ml/min/1.73 sqM); Potassium 3.5 mmol/L (3.5-5.1); Sodium 138 mmol/L (137-145); Total Bilirubin 0.2 mg/dL (0.2-1.3); Total Protein 5.9 g/dL (6.3-8.2)
[2024-07-06 11:27] VITALS: BP 138/84; PULSE 93; TEMP 98.9
[2024-07-06 11:40] LABS: Glucose,Whole Blood 89 mg/dL (70-110)
--- NOTE | 2024-07-06 12:42 | P.PN ---
Subjective Progress Note Date: 07/06/24 Principal diagnosis: Pneumonia. This is a 53-year-old female patient who follows with Dr. Wheeler as her primary care provider. She has a history of hypertension, hyperlipidemia, diabetes mellitus, Iron's status post thyroidectomy, degenerative joint disease, fibromyalgia. She also has a 25-year history of smoking 1-1/2 packs/day however quit in December of this year. She resides in a homeless half-way. She presented here to the emergency room today after a 24-hour history of fatigue, fever, right sided chest pain, vomiting and diarrhea. She denies any known sick conta cts. No recent weight loss. No hemoptysis. Chest x-ray reveals a large consolidation in the right upper lobe. CT angiogram reveals no evidence of pulmonary embolism. There is right lung pneumonia. Reactive mediastinal and hilar lymphadenopathy. There is also a noted 3.3 cm left adrenal nodule. White count 25.8. Hemoglobin 10.8. Platelets 305. Sodium 133. Potassium 3.8. Bicarb 21. BUN 14. Creatinine 0.69. Glucose 147. Troponins negative x 3. proBNP 710. AST 71. ALT 56. Lipase 17. She is seen today in consultation in the emergency department. Sitting up on a stretcher. Awake and alert in no acute distress. Maintaining O2 saturations in the 90s on room air. Still with some right sided chest discomfort. The patient is seen today July 05, 2024 in follow-up on the selective care unit. She is currently sitting up in bed. Awake and alert in no acute distress. Breathing easier today compared to yesterday. Maintaining O2 saturations in the 90s on room air. She has normal saline at 100 mL/h. Her procalcitonin was 1.85. She is continued on ceftriaxone and azithromycin. Blood cultures pending. White count 16.1. Hemoglobin 9.1. Platelets 295. Sodium 136. Potassium 3.3. Bicarb 25. BUN 8. Creatinine 0.63. Glucose 104. Chest x-ray reveals similar right upper lobe airspace consolidation. Abdominal ultrasound reveals contracted gallbladder with hyperechoic debris likely representing biliary sludge/small gallstones. Progress note dated July 06, 2024. 53-year-old patient seen in room 375. The patient is alert and awake. The patient is not requiring any supplemental oxygen, or IV fluids. The patient has no specific complaints today. She is resting comfortably, and denies any shortness of breath, cough, wheezing, or chest tightness. Current laboratory data includes a white count of 12.6, hemoglobin 9.1, hematocrit 28.2, and a plat elet count of 302,000. Sodium, potassium, chloride, CO2, anion gap, BUN, and creatinine, are all normal. Calcium is 7.6. Albumin is 3. Glucose is 89. Objective - Vital Signs Vital signs: Vital Signs Temp 98.9 F 07/06/24 11:21 Pulse 93 07/06/24 11:21 Resp 20 07/06/24 11:21 BP 138/84 07/06/24 11:21 Pulse Ox 98 07/06/24 11:21 FiO2 Intake & Output 07/05/24 07/06/24 07/06/24 18:59 06:59 18:59 Intake Total 1050 1200 Balance 1050 1200 Weight 110.7 kg Intake: IV 1050 Azithromycin 500 mg In 250 Sodium Chloride 0.9% 250 ml @ 250 mls/hr IVPB DAILY [facility] Rx#:[id number] Sodium Chloride 0.9% 1, 750 000 ml @ 150 mls/hr IV . Q6H40M [facility] Rx#:[id number] cefTRIAXone 2 gm In 50 Sodium Chloride 0.9% 50 ml @ 100 mls/hr IVPB Q24HR [facility] Rx#:[id number] Oral 1200 Other: Voiding Method Toilet Toilet # Voids 1 3 - Exam No acute distress, oriented 3. HEENT examination is grossly unremarkable. Mucous membranes are moist. No oral lesions. Neck supple. Full range of motion. No adenopathy thyromegaly or neck vein distention. Cardiovascular examination reveals regular rhythm rate. S1-S2 normal. No S3 or S4. No discernible murmur noted. Lungs reveal mostly clear breath sounds. Few scattered rhonchi noted. No wheezes. No crackles. Breath sounds equal. Abdomen soft bowel sounds are heard. No masses or tenderness. Extremities are intact. No cyanosis clubbing or edema. Skin is without rash or lesion. Neurologic examination is brief but nonfocal. - Labs CBC & Chem 7: 07/06/24 06:23 07/06/24 06:23 Labs: Abnormal Lab Results - Last 24 Hours (Table) 07/05/24 07/05/24 07/06/24 Range/Units 16:05 20:29 06:23 WBC 12.6 H (3.8-10.6) k/uL RBC 3.01 L (3.80-5.40) m/uL Hgb 9.1 L (11.4-16.0) gm/dL Hct 28.2 L (34.0-46.0) % Neutrophils # 10.4 H (1.3-7.7) k/uL POC Glucose (mg/dL) 125 H 139 H (70-110) mg/dL Calcium (8.4-10.2) mg/dL Total Protein (6.3-8.2) g/dL Albumin (3.5-5.0) g/dL 07/06/24 Range/Units 06:23 WBC (3.8-10.6) k/uL RBC (3.80-5.40) m/uL Hgb (11.4-16.0) gm/dL Hct (34.0-46.0) % Neutrophils # (1.3-7.7) k/uL POC Glucose (mg/dL) (70-110) mg/dL Calcium 7.6 L (8.4-10.2) mg/dL Total Protein 5.9 L (6.3-8.2) g/dL Albumin 3.0 L (3.5-5.0) g/dL Microbiology - Last 24 Hours (Table) 07/04/24 04:30 Blood Culture - Preliminary Blood Assessment and Plan Assessment: Acute community-acquired pneumonia affecting mainly the right upper lung with significant infiltrate. Leukocytosis secondary to above. Febrile illness secondary to above. Left adrenal nodule measuring 3.3 cm. Cholelithiasis. Chronic tobacco dependence of greater than 25 years. Hypertension. Hyperlipidemia. Diabetes mellitus. Hypothyroidism S/P thyroidectomy. Fibromyalgia. Homeless. Plan: Plan dated July 06, 2024. The patient is seen today in room 375. She appears to be relatively stable. She is on room air. She is not receiving any IV fluids. Labs, x-rays, and medications are reviewed. The patient is currently on ceftriaxone and azithromycin. She could be converted to an oral cephalosporin for a few more days. We will continue to follow make recommendations. Prognosis is guarded. Time with Patient: Less than 30
--- NOTE | 2024-07-06 12:45 | P.DS ---
Providers Date of admission: 07/04/24 04:11 Expected date of discharge: 07/06/24 Attending physician: Laurent Moore Consults: 07/04/24 04:14 Consult Physician Routine Consulting Provider: Rigo Bailey Consult Reason/Comments: cp Do you want consulting provider notified?: Yes 07/04/24 10:16 Consult Physician Routine Consulting Provider: Lucas Maravilla Consult Reason/Comments: Pneumonia Do you want consulting provider notified?: Yes 07/04/24 10:21 Consult Physician Routine Consulting Provider: Carlso Hannon Consult Reason/Comments: Bacterial pneumonia Do you want consulting provider notified?: Yes Primary care physician: Bhavik Wheeler Hospital Course: Discharge diagnoses; Bacterial pneumonia Sepsis Chest pain History of COPD Hypertension Hyperlipidemia Hyponatremia Hypokalemia Insulin-dependent diabetes mellitus Hypothyroidism Hospital course; patient is 53-year-old lady with past medical history significant for COPD, tobacco addiction, hypertension brought in the ER because of shortness of breath and chest pain. Patient stated that she has been short of breath for the last few days, shortness of breath is present on rest as on exertion. Patient was c omplaining of chest pain which is right-sided, located underneath her right breast, states it is sharp, reproducible, nonradiating, no aggravating or relieving factor associated with this chest pain. There is no complaint of fever or chills. There is no complaint of lightheadedness dizziness. Because of this chest pain and shortness of breath, patient came to the ED Initial lab work done in the ER showed WBC 25.8, hemoglobin 10.8, sodium 133, potassium 3.8, BUN 14, creatinine 0.69, glucose 132, calcium 7.6, bilirubin 1.4, AST 17, ALT 56 EKG done in the ER showed heart rate of 109 , no ST segment elevation or depression seen, no T-wave inversions seen. Chest x-ray done in the ER showed right sided pneumonia CT chest done showed right pneumonia Patient admitted to internal medicine service 07/05. Patient seen and examined. Complaining of lethargic and weakness. Gets short of breath on exertion 07/06, patient seen and examined. 2D echo done showed LVEF of 55 to 60%, mild concentric left hypertrophy. Being discharged on cefdinir for 5 more days. Outpatient follow with PCP and pulmonology PHYSICAL EXAMINATION: GENERAL: The patient is alert and oriented x3, not in any acute distress. Well developed, well nourished. HEENT: Pupils are round and equally reacting to light. EOMI. No scleral icterus. No conjunctival pallor. Normocephalic, atraumatic. No pharyngeal erythema. No thyromegaly. CARDIOVASCULAR: S1 and S2 present. No murmurs, rubs, or gallops. PULMONARY: Chest is clear to auscultation, no wheezing or crackles. ABDOMEN: Soft, nontender, nondistended, normoactive bowel sounds. No palpable organomegaly. MUSCULOSKELETAL: No joint swelling or deformity. EXTREMITIES: No cyanosis, clubbing, or pedal edema. NEUROLOGICAL: Gross neurological examination did not reveal any focal deficits. SKIN: No rashes. Dictation was produced using [employer] dictation software. please excuse any grammatical, word or spelling errors. Patient Condition at Discharge: Fair Plan - Discharge Summary Discharge Rx Participant: No New Discharge Prescriptions: New Cefdinir [Omnicef] 300 mg PO BID 5 Days #10 cap Continue Aspirin EC [Ecotrin Low Dose] 81 mg PO DAILY@1200 Pioglitazone [Actos] 30 mg PO DAILY@1200 buPROPion HCL [buPROPion HCL XL] 300 mg PO DAILY@0800 Ergocalciferol (Vitamin D2) [Drisdol (50,000 Iu)] 1,250 mcg PO QMONTHLY Rosuvastatin [Crestor] 10 mg PO DAILY@1200 Losartan [Cozaar] 50 mg PO DAILY@1930 Gabapentin [Neurontin] 600 mg PO TID@1000,1600,2200 Acetaminophen [Tylenol] 975 mg PO Q6H PRN PRN Reason: Fever And/ Or Pain Levothyroxine Sodium [Synthroid] 200 mcg PO DAILY@0700 Insulin Glargine,Hum.rec.anlog [Lantus Solostar Pen] 35 units SQ DAILY@1930 Discharge Medication List Aspirin EC [Ecotrin Low Dose] 81 mg PO DAILY@1200 11/08/21 [History] Acetaminophen [Tylenol] 975 mg PO Q6H PRN 07/04/24 [History] Ergocalciferol (Vitamin D2) [Drisdol (50,000 Iu)] 1,250 mcg PO QMONTHLY 07/04/24 [History] Gabapentin [Neurontin] 600 mg PO TID@1000,1600,2200 07/04/24 [History] Insulin Glargine,Hum.rec.anlog [Lantus Solostar Pen] 35 units SQ DAILY@192907/04/24 [History] Levothyroxine Sodium [Synthroid] 200 mcg PO DAILY@0707/04/24 [History] Losartan [Cozaar] 50 mg PO DAILY@192907/04/24 [History] Pioglitazone [Actos] 30 mg PO DAILY@119907/04/24 [History] Rosuvastatin [Crestor] 10 mg PO DAILY@119907/04/24 [History] buPROPion HCL [buPROPion HCL XL] 300 mg PO DAILY@0807/04/24 [History] Cefdinir [Omnicef] 300 mg PO BID 5 Days #10 cap 07/06/24 [Rx] Follow up Appointment(s)/Referral(s): Rigo Bailey MD [STAFF PHYSICIAN] - 2 Weeks Bhavik Wheeler DO [Primary Care Provider] - 1-2 days Discharge/Stand Alone Forms: Who Do I Call?, Community Resources, [employer]
--- NOTE | 2024-07-06 14:08 | P.PN ---
Subjective Progress Note Date: 07/06/24 Principal diagnosis: Reason for follow-up is pneumonia Patient is a 53-year-old female with a past medical history of again for diabetes mellitus hypothyroidism depression current everyday smoker presenting to the hospital for evaluation of increasing shortness of breath and right-sided chest pain, patient be diagnosed with sepsis secondary to the right- sided pneumonia. On today's evaluation that is 07/06/2024, the patient continues to be afebrile, the patient is on room air and breathing comfortably, the Pt denies having any chest pain cough decreased intensity mostly dry in nature no nausea vomiting abdominal pain or diarrhea. The patient white count is down to 12.6, creatinine 0.61 blood culture negative sputum not collected Objective - Vital Signs Vital signs: Vital Signs Temp 98.2 F 07/06/24 07:43 Pulse 92 07/06/24 07:44 Resp 20 07/06/24 07:43 BP 126/79 07/06/24 07:43 Pulse Ox 96 07/06/24 07:43 FiO2 Intake & Output 07/05/24 07/06/24 07/06/24 18:59 06:59 18:59 Intake Total 1050 1200 Balance 1050 1200 Weight 110.7 kg Intake: IV 1050 Azithromycin 500 mg In 250 Sodium Chloride 0.9% 250 ml @ 250 mls/hr IVPB DAILY [facility] Rx#:[id number] Sodium Chloride 0.9% 1, 750 000 ml @ 150 mls/hr IV . Q6H40M [facility] Rx#:[id number] cefTRIAXone 2 gm In 50 Sodium Chloride 0.9% 50 ml @ 100 mls/hr IVPB Q24HR [facility] Rx#:[id number] Oral 1200 Other: Voiding Method Toilet Toilet # Voids 1 - Exam GENERAL DESCRIPTION: Middle-age female lying in bed in no distress RESPIRATORY SYSTEM: Unlabored breathing , decreased breath sounds at bases HEART: S1 S2 regular rate and rhythm , ABDOMEN: Soft , no tenderness EXTREMITIES: No edema feet - Labs CBC & Chem 7: 07/06/24 06:23 07/06/24 06:23 Labs: Abnormal Lab Results - Last 24 Hours (Table) 07/05/24 07/05/24 07/06/24 Range/Units 16:05 20:29 06:23 WBC 12.6 H (3.8-10.6) k/uL RBC 3.01 L (3.80-5.40) m/uL Hgb 9.1 L (11.4-16.0) gm/dL Hct 28.2 L (34.0-46.0) % Neutrophils # 10.4 H (1.3-7.7) k/uL POC Glucose (mg/dL) 125 H 139 H (70-110) mg/dL Calcium (8.4-10.2) mg/dL Total Protein (6.3-8.2) g/dL Albumin (3.5-5.0) g/dL 07/06/24 Range/Units 06:23 WBC (3.8-10.6) k/uL RBC (3.80-5.40) m/uL Hgb (11.4-16.0) gm/dL Hct (34.0-46.0) % Neutrophils # (1.3-7.7) k/uL POC Glucose (mg/dL) (70-110) mg/dL Calcium 7.6 L (8.4-10.2) mg/dL Total Protein 5.9 L (6.3-8.2) g/dL Albumin 3.0 L (3.5-5.0) g/dL Microbiology - Last 24 Hours (Table) 07/04/24 04:30 Blood Culture - Preliminary Blood Assessment and Plan (1) Penicillin allergy Current Visit: Yes Status: Acute Code(s): Z88.0 - ALLERGY STATUS TO PENICILLIN SNOMED Code(s): 73809531 (2) Pneumonia Current Visit: Yes Status: Acute Code(s): J18.9 - PNEUMONIA, UNSPECIFIED ORGANISM SNOMED Code(s): 160353783 Plan: 1patient presented to the hospital with sepsis in this patient who did have fever tachycardia elevated white count source is her right-sided pneumonia likely community-acquired in this patient who did have a history of smoking. 2patient with a penicillin allergy that will limit number of antibiotics safe to use. 3patient also have elevated liver enzymes patient did have ultrasound liver and gallbladder area did show contracted gallbladder but no wall thickness or features of cholestasis. 4patient did have elevated procalcitonin urine for Legionella antigen negative sputum not collected, blood culture negative so far 5patient seem to have shown overall clinical improvement she will be able to finish therapy with oral Ceftin Dictation was produced using [employer] software. please excuse any grammatical, word or spelling errors. Time with Patient: Less than 30
[2024-07-06] MEDS ORDERED: CEFDINIR 300 MG CAP PO SCH (21:00)
[2024-07-17] MEDS ORDERED: ERGOCALCIFEROL 1,250 MCG (50,000 IU) CAPSULE PO SCH (09:00)
== END 2024-07-06 14:32 | disposition home or self-care (01) | DRG 720 ==
LOC: EC 02:55 → 3SCARD 04:11
PROVIDERS: ADMIT Hospitalist; ATTEND Hospitalist
DX: A41.9 Sepsis, unspecified organism (principal); J15.9 Unspecified bacterial pneumonia; E27.8 Other specified disorders of adrenal gland; E11.9 Type 2 diabetes mellitus without complications; E66.01 Morbid (severe) obesity due to excess calories; E78.5 Hyperlipidemia, unspecified; E87.1 Hypo-osmolality and hyponatremia; E87.6 Hypokalemia; E06.3 Autoimmune thyroiditis; E78.00 Pure hypercholesterolemia, unspecified; F17.200 Nicotine dependence, unspecified, uncomplicated; F32.A Depression, unspecified; I10 Essential (primary) hypertension; I65.29 Occlusion and stenosis of unspecified carotid artery; R59.0 Localized enlarged lymph nodes; I95.9 Hypotension, unspecified; M19.90 Unspecified osteoarthritis, unspecified site; J44.0 Chronic obstructive pulmonary disease with (acute) lower respiratory infection; K80.20 Calculus of gallbladder without cholecystitis without obstruction; M79.7 Fibromyalgia; Z68.38 Body mass index [BMI] 38.0-38.9, adult; Z20.822 Contact with and (suspected) exposure to COVID-19; Z59.01 Sheltered homelessness; Z79.4 Long term (current) use of insulin; Z79.82 Long term (current) use of aspirin; Z79.84 Long term (current) use of oral hypoglycemic drugs; Z79.890 Hormone replacement therapy; Z79.899 Other long term (current) drug therapy; Z88.0 Allergy status to penicillin; Z28.21 Immunization not carried out because of patient refusal
CPT/HCPCS: 36415; 71045; 71046; 71275; 76705; 80048; 80053; 83036; 83605; 83690; 83735; 83880; 84145; 84484; 85025; 85027; 85610; 85730; 87040; 87449; 87636; 93005; 93306; 94640; 96361; 96365; 96366; 96367; 96368; 96375; 99291

== ENCOUNTER → 2024-09-13 | Outpatient (CLI) | payer OTHER ==
--- NOTE | 2024-09-14 08:23 | MR ---
EXAMINATION TYPE: MR abdomen wo/w con DATE OF EXAM: 09/13/2024 9:33 PM INDICATION: Patient age:Female; 54 years old; Reason for study: R19.09; [facility]. COMPARISON: Ultrasound abdomen 07/05/2024 TECHNIQUE: Multiplanar multi-sequence imaging was performed of the abdomen without and with IV contr ast. The patient was given 11 ccs of Gadobutrol intravenously and dynamic imaging was performed. Post IV contrast subtraction images were also submitted for review. FINDINGS: LOWER CHEST: Mild cardiomegaly.. ABDOMEN Liver: Enlarged measuring 22.4 cm in CC dimension. No focal lesion identified. No hepatic steatosis i dentified. Gallbladder and Bile ducts: Contracted gallbladder. Trace suggesting biliary sludge. No biliary ducta l dilatation.. Pancreas: Unremarkable. Spleen: Unremarkable. Adrenal glands: Right adrenal gland is unremarkable. Left adrenal gland mass measuring 2.7 x 2.5 x 2. 8 cm. This demonstrates diffuse dropout of signal on out of phase imaging. Demonstrates intermediate T1 signal. There is heterogenous enhancement with washout. Kidneys: No hydronephrosis. No solid renal masses identified. Left renal lower pole simple 3.1 cm cys t. Stomach and Bowel: Unremarkable as visualized. Peritoneum: No evidence of pneumoperitoneum, free fluid, or adenopathy. Vasculature: Unremarkable. No aortic aneurysm. Abdominal wall: Unremarkable. Musculoskeletal: The osseous structures appear intact. IMPRESSION: 1. Left adrenal gland mass measuring up to 2.8 cm with characteristics consistent with a benign lipid rich adenoma. 2. Mild hepatomegaly. 3. Contracted gallbladder with trace biliary sludge suggested. [facility], , 09/14/2024 8:21 AM
== END | disposition home or self-care (01) ==
LOC: RADMRIMAIN 20:30
PROVIDERS: ATTEND Family Medicine
DX: R19.09 Other intra-abdominal and pelvic swelling, mass and lump (principal); E27.9 Disorder of adrenal gland, unspecified; R16.0 Hepatomegaly, not elsewhere classified; N28.1 Cyst of kidney, acquired; I51.7 Cardiomegaly
CPT/HCPCS: 74183; A9585

== ENCOUNTER → 2024-12-30 | Outpatient (CLI) | payer OTHER ==
--- NOTE | 2024-12-30 11:38 | MM ---
Reason for Exam: Screening (asymptomatic). Last mammogram was performed 23 year(s) and 5 month(s) ago. Patient History: Menarche at age 11. First Full-Term at age 18. Postmenopausal. Maternal aunt had breast cancer, age 60. Risk Values: Kiersten 5 year model risk: 0.8%. NCI Lifetime model risk: 6.0%. Prior Study Comparison: 08/05/2001 Bilateral Diagnostic Mammogram, [facility]. Tissue Density: There are scattered areas of fibroglandular density. Findings: Analyzed By CAD. There are a few small scattered benign-appearing round calcifications bilaterally redemonstrated. There is no suspicious group of microcalcifications or new suspicious mass in either breast. Overall Assessment: Benign, BI-RAD 2 Management: Screening Mammogram of both breasts in 1 year. . Patient should continue monthly self-breast exams. A clinical breast exam by your physician is recommended on an annual basis. This exam should not preclude additional follow-up of suspicious palpable abnormalities. Note on Kiersten scores and lifetime risk: 1. A Kiersten score greater than 3% is considered moderate risk. If this is the case, consider specialist referral to assess eligibility for a risk reducing agent. 2. If overall lifetime risk for the development of breast cancer is 20% or higher, the patient may qualify for future screening with alternating mammogram and breast MRI. [facility], , 12/30/2024 11:35 AM. Electronically signed and approved by: Steven Patel M.D.
== END | disposition home or self-care (01) ==
LOC: RADMAMWWP 10:56
PROVIDERS: ATTEND Family Medicine
DX: Z12.31 Encounter for screening mammogram for malignant neoplasm of breast (principal); R92.323 Mammographic fibroglandular density, bilateral breasts; R92.1 Mammographic calcification found on diagnostic imaging of breast; Z78.0 Asymptomatic menopausal state; Z80.3 Family history of malignant neoplasm of breast
CPT/HCPCS: 77067